=== PATIENT | male | born 1970 | race Caucasian/White ===

== ENCOUNTER 2024-06-20 10:36 | Day surgery (SDC) | payer OTHER, SELFPAY ==
--- NOTE | 2024-06-20 11:05 | US_ITS ---
WS: [id number] ULTRASOUND-GUIDED PARACENTESIS CLINICAL INFORMATION: hepatic cirrhosis COMPARISON: None. Procedure Informed consent: The risks, benefits, and alternatives of the procedure were discussed with the lester ent. Verbal and written consent was obtained. Timeout: A timeout was performed to confirm the correct patient, procedure, and site. Preparation: A suitable skin site was identified. The patient was prepped and draped in usual sterile fashion. Lidocaine 1% was used for local anesthesia. Catheter: 4 Pakistani One-step Yueh catheter. Side: LEFT lower quadrant. Fluid Volume: 6200 ml Color: Clear yellow DISPOSITION: Discarded safely. Complications: None. Patient disposition: Discharged from the department in stable condition. US/US paracentesis abd w [id number] IMPRESSION: Uncomplicated ultrasound-guided paracentesis. Removal of 6200 cc
[2024-06-20 11:12] VITALS: BP 143/97; PULSE 93; RESP 18; TEMP 36.6; O2SAT 97; BMI 31.9
[2024-06-20 12:17] LABS: Appearance, Peritoneal Fluid Cloudy (Clear); Color, Peritoneal Fluid Yellow (Pale Yellow); Cyto Order Verification Order Verified
[2024-06-20 12:18] LABS: Pathology Referral Yes
[2024-06-20 12:27] LABS: Polynuclear # Cells, Perit 0.003 10^3/uL; RBC Pertioneal Fluid 0 10^3/uL; WBC Peritoneal Fluid 73 /uL
== END 2024-06-20 12:24 | disposition home or self-care (01) ==
LOC: GILAB 10:37
PROVIDERS: Radiology Neuroradiology; Family Provider Family Medicine; PCP Nurse Practitioner; Visit Provider Nurse Practitioner
PROC: (CPT 49082; principal; 2024-06-20 12:00)
DX: K74.60 Unspecified cirrhosis of liver (principal)
CPT/HCPCS: 49083; 80503; 88112; 89050

== ENCOUNTER 2024-08-04 13:35 | Emergency (ER) | payer OTHER, SELFPAY ==
[2024-08-04 14:02] VITALS: BP 109/71; PULSE 87; RESP 18; TEMP 36.5; O2SAT 97
[2024-08-04 14:37] LABS: Basophils # 0.1 10^3/uL (0.0-0.1); Eosinophils # 0.1 10^3/uL (0.0-0.8); Eosinophils % 1.6 %; Hematocrit 34.4 % (37-53); Lymphocytes # 1.6 10^3/uL (0.8-4.8); Lymphocytes % 33.1 %; Mean Corpuscular HGB Conc 33.7 g/dL (30-55); Mean Corpuscular Hemoglobin 33.9 pg (27-33); Mean Corpuscular Volume 100.6 fl (82-101); Mean Platelet Volume 9.9 fL (7.4-10.4); Monocytes # 0.4 10^3/uL (0.2-0.9); Monocytes % 8.4 %; Neutrophils # 2.69 10^3/uL (1.8-7.7); Neutrophils % 55.5 %; Nucleated Red Blood Cells % 0 %; Platelet Count 82 10^3/cmm (157-399); Red Blood Count 3.42 10^6/uL (3.85-5.65); Red Cell Distribution Width 13.7 % (12.1-15.1); White Blood Count 4.86 10^3/uL (3.29-11.43)
[2024-08-04 15:01] LABS: Alanine Aminotransferase 24 U/L (0-41); Albumin Level 2.9 g/dL (3.5-5.2); Alkaline Phosphatase 108 U/L (40-130); Anion Gap 14.7 (5-19); Aspartate Amino Transferase 41 U/L (0-40); Blood Urea Nitrogen 18 mg/dL (6-20); Calcium 8.7 mg/dL (8.5-10.5); Carbon Dioxide 22 mmol/L (22-29); Chloride 103 mmol/L (98-107); Creatinine Clr Calc Pharmacy 54.8122; Globulin 4.1 g/dL (1.3-4.6); Glomerular Filtration Rate 42.5 mL/min (90-130); Glucose 159 mg/dL (65-115); Lipase 126 U/L (13-60); NT Pro B Type Natriuretic Pept 393 pg/mL (0-125); Osmolality Calculated 287 mOsm/kg (285-295); Potassium 3.7 mmol/L (3.5-5.1); Sodium 136 mmol/L (136-145); Total Bilirubin 4.7 mg/dL (0.15-1.2)
--- NOTE | 2024-08-04 15:28 | US_ITS ---
WS: [id number] ULTRASOUND-GUIDED PARACENTESIS CLINICAL INFORMATION: abd swelling, hx of cirrhosis Procedure Informed consent: The risks, benefits, and alternatives of the procedure were discussed with the patient. Verbal and written consent was obtained. Timeout: A timeout was performed to confirm the correct patient, procedure, and site. Preparation: A suitable skin site was identified. The patient was prepped and draped in usual sterile fashion. Lidocaine 1% was used for local anesthesia. Catheter: 4 Polish One-step Vertical Knowledgeeh catheter. Side: LEFT lower quadrant. Fluid Volume: 5600 ml Color: Clear yellow DISPOSITION: Discarded safely. Complications: None. US/US paracentesis abd w [id number] IMPRESSION: Uncomplicated ultrasound-guided paracentesis. Removal of 5600cc
--- NOTE | 2024-08-04 15:30 | PC.PHAR ---
Pt verified that he is taking only the medications on the list. The following list are current meds pt has taken recently. Midodrine 5mg bid 07/11/24 30ds Lactulose 10g/15ml 30ml daily prn 07/11/24 30ds Lisinopril 30mg dfaily 05/31/25 90ds Allopurinol 300mg daily 05/11/24 90ds Furosemide 20mg daiy 05/11/24 90ds These medications were not added to Hospital med list.
--- NOTE | 2024-08-04 15:33 | ED_ITS ---
HPI - Abdominal Pain 2 General: Chief Complaint: Abdominal Pain Stated Complaint: fluid built up on stomach Time Seen by Provider: 08/04/24 15:11 Source: patient Mode of arrival: ambulatory Limitations: no limitations History of Present Illness: Patient is a 53-year-old male who presents to the emergency department for abdominal pain and swelling for the past week. He has a history of alcoholic liver cirrhosis, states that back in June he had a paracentesis performed here to drain off fluid from his stomach. Reviewing this note it does appear that he had 6200 cc removed. He states that since he has been seen at [facility] in [place] for another paracentesis. He is here stating that he needs another one, states [place] [facility] [place] that [place] is his primary doctor. He is not reporting any fevers, nausea or vomiting, confusion, and is not demonstrating any signs of altered mental status. He is noting that he is starting to feel sick to his stomach and abdominal pain primarily to the epigastric region. Patient reportedly has been started on a higher dose of spironolactone and has follow-up appointment with primary care next Thursday. At this time his blood pressure is 109/71, rest of his vitals within normal limits. MD elicited complaint: abdominal pain Pertinent past history: other (Alcoholic liver cirrhosis with ascites) Onset (ago): day(s) Pain Consistency: intermittent Location: Epigastric Severity: moderate Quality: fullness Radiation: none Associated Symptoms: Reports bloating and nausea; Denies change in stool character, chills, coffee ground emesis, constipation, diarrhea, dysuria, fever(s), hematochezia, hematemesis and vomiting Related Data Home Medications ?Medication ?Instructions ?Recorded ?Confirmed aspirin 81 mg tablet,delayed 81 mg PO DAILY 06/16/24 0 08/04/24 release ondansetron 4 mg disintegrating 4 mg PO Q6H PRN Nausea And Vomiting 06/16/24 08/04/24 tablet pantoprazole 40 mg tablet,delayed 40 mg PO DAILY PRN A ayan Reflux 06/16/24 08/04/24 release (Protonix) albuterol sulfate 90 mcg/actuation 1 puff inhalation Q 4H PRN 08/04/24 08/04/24 aerosol inhaler Shortness Of Breath metolazone 5 mg tablet 5 mg PO DAILY 08/04/2408/04 spironolactone 100 mg tablet 100 mg PO DAILY 08/04/24 08/04/24 Allergies Allergy/AdvReac Type Severity Reaction Status Date / Time morphine Allergy ADR-Nausea Verified 08/04/24 14:09 Review of Systems 2 General: Reports: 10 or more systems reviewed and unremarkable except in HPI and below Const: Denies: fever(s), chills, change in appetite, change in weight or diaphoresis ENMT: Denies: throat pain or hoarseness Card: Denies: chest pain, palpitations or lightheadedness Resp: Denies: dyspnea, productive cough or wheezing GI: Reports: abdominal pain, nausea and bloating; Denies: vomiting, hematemesis, coffee ground emesis, diarrhea, constipation, change in stool character or hematochezia : Denies: flank pain, difficulty urinating, dysuria, urinary frequency or urinary urgency Musc: Denies: neck pain or back pain Skin/Breast: Denies: rash or new lesions Neuro: Denies: headache(s) or dizziness Physical Exam 2 Const: COMMON NORMALS: no acute distress, patient oriented x3, no limitations, alert and well nourished GENERAL APPEARANCE: cooperative and comfortable O RIENTATION/CONSCIOUSNESS: Yes awake OTHER: Mild jaundice of the skin HENMT: COMMON NORMALS: normocephalic, atraumatic, hearing grossly normal bilaterally, external ears normal, Normal external nose present, Normal nasal mucous membranes and turbinates present and moist oral mucous membranes HEAD & SCALP: normocephalic and atraumatic NOSE: Normal external nose present and Normal nasal mucous membranes and turbinates present EXTERNAL EAR: Yes external ears normal Eye: COMMON NORMALS: Equal, round and reactive pupils present, EOMs intact bilaterally, conjunctivae normal and normal visual cherry by confrontation C ONJUNCTIVA: Yes conjunctivae normal PUPIL: Yes Equal, round and reactive pupils present Neck/C-Spine: COMMON NORMALS: full ROM, supple, no meningeal signs and no JVD Resp: COMMON NORMALS: normal respiratory effort, No retractions, No use of accessory muscles and clear to auscultation bilaterally AUSCULTATION: clear to auscultation bilaterally, no crackles, no rales, no rhonchi and no wheezes Cardio: COMMON NORMALS: no JVD, regular rate, regular rhythm, S1 normal heart sound present, S2 normal heart sound present, No gallops present (Cardio), No clicks present (Cardio), No murmurs present (Cardio), No rub (Cardio) and Peripheral pulses 2+ throughout RATE: regular rate RHYTHM: regular rhythm HEART SOUNDS: S1 normal heart sound present and S2 normal heart sound present PERIPHERAL PULSES: Peripheral pulses 2+ throughout GI: COMMON NORMALS: Soft to palpation INSPECTION: Yes abdominal distension, Yes visible herniation and Yes Fluid wave present AUSCULTATION: Yes normoactive bowel sounds PALPATION: Yes Soft to palpation, Yes Tenderness to palpation present (GI) (Epigastric, mild), No Guarding due to palpation present (GI) and No Rigid due to palpation PERCUSSION: Fluid wave present RECTAL EXAM: Yes deferred Extremity: COMMON NORMALS: normal to inspection and full ROM Neuro: COMMON NORMALS: patient oriented x3, moves all extremities, no focal motor deficits and no sensory deficits noted SENSORIUM/ORIENTATION: Yes alert MENINGEAL SIGNS: Yes no meningeal signs Psych: COMMON NORMALS: mental status grossly normal, cooperative and speech normal SPEECH: Yes normal speech Skin: COMMON NORMALS: no rashes or lesions noted GENERAL SKIN EXAM: no rashes or lesions noted Course 2 Vital Signs: Vital signs: Vital Signs Temperature 97.7 F 08/04/24 14:02 Pulse Rate 80 08/04/24 16:40 Respiratory Rate 16 08/04/24 16:40 Blood Pressure 127/75 08/04/24 16:40 Pulse Oximetry 96 08/04/24 16:40 Oxygen Delivery Me thod Room Air 08/04/24 16:40 MDM - Abdominal Pain Medical Decision Making Patient presented with persistent swelling of the abdomen, twice this year has already had paracentesis performed. Reviewing note from 06/20, it appears Dr. Bermudez drained off 6200 cc of fluid, and subsequently states he had half a gallon drained off of him at [facility]. On exam there was fluid wave, abdomen was distended but was also soft. No major abnormalities on blood work considering patient's history of alcoholic liver cirrhosis. States he has not drinking recently. I spoke with Dr. Bermudez, interventional radiologist, who kindly agrees to perform paracentesis pending his ultrasound of the abdomen. Approximately 5600 cc drained today, and with his upcoming appointment with primary care informed him that he needs to discuss setting up routine visits with GI to have regular paracentesis performed. He notes quite a bit of relief in his pain after the paracentesis, will be allowed discharge home with strict return precautions of which she verbalized understanding. Lab Data 08/04/24 14:19 08/04/24 14:19 Labs/Radiology: Laboratory Results WBC 4.86 10^3/uL (3.29-11.43) 08/04/24 14:19 RBC 3.42 10^6/uL (3.85-5.65) L 08/04/24 14:19 Hgb 11.60 g/dL (11.27-16.99) 08/04/24 14:19 Hct 34.4 % (37-53) L 08/04/24 14:19 MCV 100.6 fl (82-101) 08/04/24 14:19 MCH 33.9 pg (27-33) H 08/04/24 14:19 MCHC 33.7 g/dL (30-55) 08/04/24 14:19 RDW 13.7 % (12.1-15.1) 08/04/24 14:19 Plt Count 82 10^3/cmm (157-399) L 08/04/24 14:19 MPV 9.9 fL (7.4-10.4) 08/04/24 14:19 Neut % (Auto) 55.5 % 08/04/24 14:19 Lymph % (Auto) 33.1 % 08/04/24 14:19 [place] % (Auto) 8.4 % 08/04/24 14:19 Eos % (Auto) 1.6 % 08/04/24 14:19 Baso % (Auto) 1.0 % 08/04/24 14:19 Neut # (Auto) 2.69 10^3/uL (1.8-7.7) 08/04/24 14:19 Lymph # (Auto) 1.6 10^3/uL (0.8-4.8) 08/04/24 14:19 [place] # (Auto) 0.4 10^3/uL (0.2-0.9) 08/04/24 14:19 Eos # (Auto) 0.1 10^3/uL (0.0-0.8) 08/04/24 14:19 Baso # (Auto) 0.1 10^3/uL (0.0-0.1) 08/04/24 14:19 Nucleated RBC % (auto) 0 % 08/04/24 14:19 Nucleated RBCs # 0.0 /100WBC 08/04/24 14:19 Sodium 136 mmol/L (136-145) 08/04/24 14:19 Potassium 3.7 mmol/L (3.5-5.1) 08/04/24 14:19 Chloride 103 mmol/L (98-107) 08/04/24 14:19 Carbon Dioxide 22 mmol/L (22-29) 08/04/24 14:19 Anion Gap 14.7 (5-19) 08/04/24 14:19 BUN 18 mg/dL (6-20) 08/04/24 14:19 Creatinine 1.7 mg/dL (0.7-1.2) H 08/04/24 14:19 GFR Calculation 42.5 mL/min (90-130) L 08/04/24 14:19 Glucose 159 mg/dL (65-115) H 08/04/24 14:19 Calculated Osmolality 287 mOsm/kg (285-295) 08/04/24 14:19 Calcium 8.7 mg/dL (8.5-10.5) 08/04/24 14:19 Total Bilirubin 4.7 mg/dL (0.15-1.2) H 08/04/24 14:19 AST 41 U/L (0-40) H 08/04/24 14:19 ALT 24 U/L (0-41) 08/04/24 14:19 Alkaline Phosphatase 108 U/L (40-130) 08/04/24 14:19 NT-Pro-B Natriuret Pep 393 pg/mL (0-125) H 08/04/24 14:19 Total Protein 7.0 g/dL (6.6-8.7) 08/04/24 14:19 Albumin 2.9 g/dL (3.5-5.2) L 08/04/24 14:19 Globulin 4.1 g/dL (1.3-4.6) 08/04/24 14:19 Lipase 126 U/L (13-60) H 08/04/24 14:19 No radiology studies performed this visit Discharge Plan Discharge Patient Disposition: Home Clinical Impression: Alcoholic cirrhosis of liver with ascites Condition: Stable Prescriptions: No Action aspirin [Aspir-81] 81 mg Tablet,Delayed Release (Dr/Ec) 81 mg PO DAILY pantoprazole [Protonix] 40 mg Tablet,Delayed Release (Dr/Ec) 40 mg PO DAILY PRN (Reason: Acid Reflux) ondansetron 4 mg Tablet,Disintegrating 4 mg PO Q6H PRN (Reason: Nausea And Vomiting) spironolactone 100 mg tablet 100 mg PO DAILY metolazone 5 mg tablet 5 mg PO DAILY albuterol sulfate 90 mcg/actuation HFA aerosol inhaler 1 puff INHALATION Q4H PRN (Reason: Shortness Of Breath) Discharge Orders: Discharge ED (Routine); Ordered 08/04/24 Ordered By: Konstantin Arriaza Referrals: Larissa Fuller FNP [Primary Care Provider] - Patient Instructions: Cirrhosis of the Liver (ED) Activity Restrictions/Additional Instructions: Please follow-up with your primary care early next week as planned to discuss setting up appointments with GI Lab for routine paracentesis. If you start developing any fevers, confusion, worsening illness, worsening abdominal pain or swelling, or other concerns please return to the emergency department as we discussed. Please see attached patient instructions for further education. Avoid alcohol use. Print Language: Nepali Coding Level of Care Code ED Food Safety Coordinator for Uday Benjamin
[2024-08-04 16:18] VITALS: PULSE 88; RESP 16; O2SAT 97
[2024-08-04 16:22] VITALS: BP 101/72
[2024-08-04 16:40] VITALS: BP 127/75; PULSE 80; RESP 16; O2SAT 96
--- NOTE | 2024-08-04 17:13 | PC.NURSE ---
PATIENT PARACENTESIS COMPLETED. PATINET HAD 5600 ML OUT. PATIENT TOLERATED PROCEDURE WELL.
[2024-08-04 17:32] VITALS: BP 91/58; PULSE 83; O2SAT 96
== END 2024-08-04 17:33 | disposition home or self-care (01) ==
PROVIDERS: Emergency Medicine; Emergency Provider Physician Assistant; PCP Nurse Practitioner
DX: K70.31 Alcoholic cirrhosis of liver with ascites (principal); Z79.82 Long term (current) use of aspirin
CPT/HCPCS: 36415; 49083; 80053; 83690; 83880; 85025; 99285; 99291

== ENCOUNTER 2024-08-15 18:33 | Emergency (ER) | payer OTHER, SELFPAY ==
[2024-08-15] VITALS (16 sets, daily range): BP systolic 64–82; BP diastolic 41–48; PULSE 70–96; RESP 12–27; TEMP 36.9; O2SAT 91–100; BMI 28.1
--- NOTE | 2024-08-15 18:36 | XRR_ITS ---
PROCEDURE INFORMATION: Exam: XR Chest Exam date and time: 08/15/2024 7:09 PM Age: 53 years old Clinical indication: Shortness of breath; Additional info: SOB TECHNIQUE: Imaging protocol: Radiologic exam of the chest. Views: 1 view. COMPARISON: No relevant prior studies available. FINDINGS: Lungs: There is no consolidation. Pleural spaces: There is no pleural effusion or pneumothorax. Heart/Mediastinum: Cardiomediastinal contours are unremarkable. Bones/joints: Bones are unremarkable. XR/XR chest 1V portable [id number] IMPRESSION: No acute findings.
--- NOTE | 2024-08-15 18:37 | ECG_ITS ---
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 Measurements Intervals [place] Rate: 97 P: 44 MN: 139 QRS: 53 QRSD: 97 T: 4 QT: 376 QTc: 479 Interpretive Statements SINUS RHYTHM No previous ECG available for comparison Electronically Signed On 08-20-2024 18:15:10 CATHEAD WORKER by Sanjeev Bolanos M.D. [email or web address] health [id number]
--- NOTE | 2024-08-15 19:56 | W.ED.SOB ---
HPI - SOB/Dyspnea General: Chief Complaint: Shortness of Breath/Dyspnea Stated Complaint: SOB\ABD Pain Time Seen by Provider: 08/15/24 19:37 History of Present Illness: HPI Narrative: Patient presents to the ER with complaints of increasing shortness of breath and weakness for the past few days. Patient does have liver failure and has paracentesis done from time to time. Patient had it drained yesterday and he says they took off 5 to 6 L. Patient denies any fevers but does say he is cold and has chills all the time. 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 Patient is noted to be hypotensive in triage with a blood pressure of approximately 65/42. Patient is only blood pressure potential medicine is metolazone 5 and spironolactone 100 mg daily. Related Data Home Medications ?Medication ?Instructions ?Recorded ?Confirmed aspirin 81 mg tablet,delayed 81 mg PO DAILY 06/16/24 08/04/24 release ondansetron 4 mg disintegrating 4 mg PO Q6H PRN Nausea And Vomiting 06/16/24 08/04/24 tablet pantoprazole 40 mg tablet,delayed 40 mg PO DAILY PRN Acid Reflux 06/16/24 08/04/24 release (Protonix) albuterol sulfate 90 mcg/actuation 1 puff inhalation Q4H PRN 08/04/24 08/04/24 aerosol inhaler Shortness Of Breath metolazone 5 mg tablet 5 mg PO DAILY 08/04/24 08/04/24 spironolactone 100 mg tablet 100 mg PO DAILY 08/04/24 08/04/24 Allergies Allergy/AdvReac Type Severity Reaction Status Date / Time morphine Allergy ADR-Nausea Verified 08/15/24 19:02 Review of Systems General: Reports: 10 or more systems reviewed and unremarkable except in HPI and below Physical Exam Const: COMMON NORMALS: no acute distress, average body habitus, patient oriented x3, no limitations, healthy appearing, alert and well nourished HENMT: COMMON NORMALS: normocephalic, atraumatic, hearing grossly normal bilaterally, external ears normal, Normal external nose present, moist oral mucous membranes and oropharynx normal HEAD & SCALP: normocephalic and atraumatic NOSE: Normal external nose present EXTERNAL EAR: Yes external ears normal Neck/C-Spine: COMMON NORMALS: no JVD Chest: COMMONS NORMALS: normal inspection of the chest and normal palpation of entire chest wall Resp: COMMON NORMALS: normal respiratory effort, No retractions, No use of accessory muscles and clear to auscultation bilaterally AUSCULTATION: clear to auscultation bilaterally Cardio: COMMON NORMALS: no JVD, regular rate, regular rhythm, S1 normal heart sound present, S2 normal heart sound present, No gallops present (Cardio), No clicks present (Cardio), No murmurs present (Cardio) and No rub (Cardio) RATE: regular rate RHYTHM: regular rhythm HEART SOUNDS: S1 normal heart sound present and S2 normal heart sound present GI: COMMON NORMALS: Normal to inspection, nondistended, normoactive bowel sounds present, Soft to palpation and No hepatosplenomegaly present; negative for non-tender (Diffusely mildly tender) PALPATION: Yes Soft to palpation and Yes No hepatosplenomegaly present Neuro: COMMON NORMALS: patient oriented x3 SENSORIUM/ORIENTATION: Yes alert Course Vital Signs: Vital signs: Vital Signs Temperature 98.5 F 08/15/24 18:50 Pulse Rate 83 08/16/24 01:00 Respiratory Rate 14 08/16/24 01:00 Blood Pressure 74/42 08/16/24 01:00 Pulse Oximetry 92 08/16/24 01:00 Oxygen Delivery Me thod Nasal Cannula 08/15/24 21:00 Oxygen Flow Rate 2 08/15/24 21:00 MDM - SOB/Dyspnea Medical Decision Making Lab work was obtained, white count 12.38, BUN/creatinine 68 and 5.9, lactic acid 3.8, bilirubin 2.9, chest x-ray showed no acute findings, patient's blood pressure stayed soft, patient was given a septic bolus and 3.375 g of Zosyn. Blood pressure still stays soft. Patient was started on Levophed, chest abdomen pelvis showed cirrhosis with moderate ascites. Dr. Jules at [facility] accepted the patient for acute on chronic liver failure and septic shock. Medical Records I reviewed the patient's medical records. Lab Data I reviewed the patient's lab results. 08/15/24 19:50 08/15/24 19:50 Labs/Radiology: Radiology Impressions Chest X-Ray 08/15/24 18:36 IMPRESSION: No acute findings. Chest/Abdomen/Pelvis CT 08/15/24 22:10 IMPRESSION: 1. Mild diffuse fluid third-spacing with very small left and trace right pleural effusions and areas of ykzy-cozbhaw-pjpw-right mid to lower lung atelectasis, scarring, or airspace disease. 2. Other findings above. Abdomen/pelvis CT pending, see that report. IMPRESSION: 1. Cirrhosis with moderate ascites. 2. No small bowel obstruction, abscess or free air. Mild to moderate diffuse areas of large and small bowel wall thickening are probably due to mural edema versus less likely small areas of enteritis or colitis. 3. A few chronic/incidental findings above including 4 cm AAA. Laboratory Results WBC 12.38 10^3/uL (3.29-11.43) H 08/15/24 19:50 RBC 3.53 10^6/uL (3.85-5.65) L 08/15/24 19:50 Hgb 11.70 g/dL (11.27-16.99) 08/15/24 19:50 Hct 34.0 % (37-53) L 08/15/24 19:50 MCV 96.3 fl (82-101) 08/15/24 19:50 MCH 33.1 pg (27-33) H 08/15/24 19:50 MCHC 34.4 g/dL (30-55) 08/15/24 19:50 RDW 13.8 % (12.1-15.1) 08/15/24 19:50 Plt Count 90 10^3/cmm (157-399) L 08/15/24 19:50 MPV 11.5 fL (7.4-10.4) H 08/15/24 19:50 Neut % (Auto) 76.8 % 08/15/24 19:50 Lymph % (Auto) 11.1 % 08/15/24 19:50 [place] % (Auto) 10.8 % 08/15/24 19:50 Eos % (Auto) 0.2 % 08/15/24 19:50 Baso % (Auto) 0.3 % 08/15/24 19:50 Neut # (Auto) 9.50 10^3/uL (1.8-7.7) H 08/15/24 19:50 Lymph # (Auto) 1.4 10^3/uL (0.8-4.8) 08/15/24 19:50 [place] # (Auto) 1.3 10^3/uL (0.2-0.9) H 08/15/24 19:50 Eos # (Auto) 0.0 10^3/uL (0.0-0.8) 08/15/24 19:50 Baso # (Auto) 0.0 10^3/uL (0.0-0.1) 08/15/24 19:50 Nucleated RBC % (auto) 0 % 08/15/24 19:50 Nucleated RBCs # 0.0 /100WBC 08/15/24 19:50 Sodium 130 mmol/L (136-145) L 08/15/24 19:50 Potassium 4.6 mmol/L (3.5-5.1) 08/15/24 19:50 Chloride 93 mmol/L (98-107) L 08/15/24 19:50 Carbon Dioxide 25 mmol/L (22-29) 08/15/24 19:50 Anion Gap 16.6 (5-19) 08/15/24 19:50 BUN 68 mg/dL (6-20) H 08/15/24 19:50 Creatinine 5.9 mg/dL (0.7-1.2) H* 08/15/24 19:50 GFR Calculation 10.1 mL/min (90-130) L 08/15/24 19:50 Glucose 115 mg/dL (65-115) 08/15/24 19:50 Calculated Osmolality 291 mOsm/kg (285-295) 08/15/24 19:50 Lactic Acid 3.8 mmol/L (0.5-2.2) H 08/15/24 19:50 Lactic Acid (Sepsis) 2.1 mmol/L (0.5-2.2) 08/15/24 23:23 Calcium 8.4 mg/dL (8.5-10.5) L 08/15/24 19:50 Phosphorus 4.1 mg/dL (2.5-4.5) 08/15/24 19:50 Magnesium 2.0 mg/dL (1.7-2.3) 08/15/24 19:50 Total Bilirubin 2.9 mg/dL (0.15-1.2) H 08/15/24 19:50 AST 24 U/L (0-40) 08/15/24 19:50 ALT 16 U/L (0-41) 08/15/24 19:50 Alkaline Phosphatase 92 U/L (40-130) 08/15/24 19:50 C-Reactive Protein 171.2 mg/L (0.0-4.9) H 08/15/24 19:50 NT-Pro-B Natriuret Pep 1489 pg/mL (0-125) H 08/15/24 19:50 Total Protein 6.6 g/dL (6.6-8.7) 08/15/24 19:50 Albumin 2.4 g/dL (3.5-5.2) L 08/15/24 19:50 Globulin 4.2 g/dL (1.3-4.6) 08/15/24 19:50 Lipase 99 U/L (13-60) H 08/15/24 19:50 Procalcitonin 13.17 ng/mL (0-0.5) H 08/15/24 19:50 Influenza A (PCR) Negative (Negative) 08/15/24 21:31 Influenza Type B (PCR) Negative (Negative) 08/15/24 21:31 RSV (PCR) Negative (Negative) 08/15/24 21:31 SARS-CoV-2 (PCR) Negative (Negative) 08/15/24 21:31 All radiology interpretation(s) finalized by discharge Discharge Plan Discharge Patient Disposition: Xfer Short-Term Hosp Clinical Impression: Liver failure, Acute renal failure, Septic shock Condition: Stable Prescriptions: No Action aspirin [Aspir-81] 81 mg Tablet,Delayed Release (Dr/Ec) 81 mg PO DAILY pantoprazole [Protonix] 40 mg Tablet,Delayed Release (Dr/Ec) 40 mg PO DAILY PRN (Reason: Acid Reflux) ondansetron 4 mg Tablet,Disintegrating 4 mg PO Q6H PRN (Reason: Nausea And Vomiting) spironolactone 100 mg tablet 100 mg PO DAILY metolazone 5 mg tablet 5 mg PO DAILY albuterol sulfate 90 mcg/actuation HFA aerosol inhaler 1 puff INHALATION Q4H PRN (Reason: Shortness Of Breath) Referrals: Larissa Fuller, VICE PRESIDENT TALENT MANAGEMENT [Primary Care Provider] - Print Language: Mongolian Coding Level of Care Code ED Medical Services Assistant for Chg Sourav
[2024-08-15 19:58] LABS: Basophils % 0.3 %; Eosinophils % 0.2 %; Lymphocytes # 1.4 10^3/uL (0.8-4.8); Lymphocytes % 11.1 %; Mean Corpuscular HGB Conc 34.4 g/dL (30-55); Mean Corpuscular Hemoglobin 33.1 pg (27-33); Mean Corpuscular Volume 96.3 fl (82-101); Mean Platelet Volume 11.5 fL (7.4-10.4); Monocytes # 1.3 10^3/uL (0.2-0.9); Monocytes % 10.8 %; Neutrophils % 76.8 %; Nucleated Red Blood Cells % 0 %; Platelet Count 90 10^3/cmm (157-399); Red Blood Count 3.53 10^6/uL (3.85-5.65); Red Cell Distribution Width 13.8 % (12.1-15.1); White Blood Count 12.38 10^3/uL (3.29-11.43)
[2024-08-15] MEDS: ketorolac 30 mg/mL INJ IVP (20:00)
[2024-08-15] MEDS: ondansetron 2 mg/ML SDV 2 mL 4 MG IVP (20:00)
[2024-08-15 20:13] LABS: Lactic Sepsis W/Reflex 3.8 mmol/L (0.5-2.2)
[2024-08-15] MEDS: sodium chloride 0.9% 500 ML 999 ML IV (20:20)
[2024-08-15 20:24] LABS: NT Pro B Type Natriuretic Pept 1489 pg/mL (0-125); Procalcitonin 13.17 ng/mL (0-0.5)
[2024-08-15 20:35] LABS: Alanine Aminotransferase 16 U/L (0-41); Albumin Level 2.4 g/dL (3.5-5.2); Alkaline Phosphatase 92 U/L (40-130); Anion Gap 16.6 (5-19); Aspartate Amino Transferase 24 U/L (0-40); Blood Urea Nitrogen 68 mg/dL (6-20); Calcium 8.4 mg/dL (8.5-10.5); Carbon Dioxide 25 mmol/L (22-29); Chloride 93 mmol/L (98-107); Creatinine Clr Calc Pharmacy 15.4551; Globulin 4.2 g/dL (1.3-4.6); Glomerular Filtration Rate 10.1 mL/min (90-130); Glucose 115 mg/dL (65-115); Lipase 99 U/L (13-60); Osmolality Calculated 291 mOsm/kg (285-295); Potassium 4.6 mmol/L (3.5-5.1); Sodium 130 mmol/L (136-145); Total Bilirubin 2.9 mg/dL (0.15-1.2); Total Protein 6.6 g/dL (6.6-8.7)
[2024-08-15] MEDS: ipratropium-albuterol 3 mL Neb INHALATION (20:56)
[2024-08-15] MEDS: HYDROMORPHONE HCL 0.5 MG/0.5 ML INJ IVP (21:24)
[2024-08-15] MEDS: piperacillin-tazobactam 3.375 GM in sodium chloride 0.9% (plus) 50 ML IV (21:27)
[2024-08-15 21:36] LABS: C Reactive Protein 171.2 mg/L (0.0-4.9); Phosphorus 4.1 mg/dL (2.5-4.5)
[2024-08-15 21:44] LABS: Reflex Lactate Order REFLEX LACTIC ORDERD
--- NOTE | 2024-08-15 22:10 | CTR_ITS ---
PROCEDURE INFORMATION: Exam: CT Chest Without Contrast; Diagnostic Exam date and time: 08/15/2024 10:25 PM Age: 53 years old Clinical indication: Abdominal tenderness; Other: Sepsis; Prior surgery; Surgery date: 6+ months; Surgery type: Gb; Additional info: Sepsis, kidney liver failure, hypotension, ascites TECHNIQUE: Imaging protocol: Diagnostic computed tomography of the chest without contrast. Radiation optimization: All CT scans at this facility use at least one of these dose optimization techniques: automated exposure control; mA and/or kV adjustment per patient size (includes targeted exams where dose is matched to clinical indication); or iterative reconstruction. COMPARISON: CR (CHEST, ) 08/15/2024 7:09 PM RADIATION DOSE METRICS: Total DLP (mGy-cm): 828.11 FINDINGS: Lungs: Yiyyesya-wd-tssmhi underlying emphysema with COPD. There is upper lung paraseptal and centrilobular emphysematous change. Moderate areas of bmfn-lkrwyed-lwqg-right mid to lower lung atelectasis, scarring or developing airspace disease. Pleural spaces: Very small left pleural effusion. Trace right pleural fluid. No pneumothorax. Heart: The heart is normal size. No pericardial effusion. Coronary arteries: Advanced coronary atherosclerotic calcifications are present. Lymph nodes: Mild likely reactive mediastinal lymphadenopathy. Vasculature: No acute finding noted. No aortic aneurysm. Bones/joints: No acute fracture. Soft tissues: Unremarkable. COMMENTS: The presence of pulmonary emphysema on CT is an independent risk factor for lung cancer. In the absence of a history or active diagnosis of lung cancer, it is recommended that this patient with emphysema be evaluated for enrollment in a low dose CT lung cancer screening program. PROCEDURE INFORMATION: Exam: CT Abdomen And Pelvis Without Contrast Exam date and time: 08/15/2024 10:25 PM Age: 53 years old Clinical indication: Abdominal tenderness; Other: Sepsis; Prior surgery; Surgery date: 6+ months; Surgery type: Gb; Additional info: Sepsis, kidney liver failure, hypotension, ascites TECHNIQUE: Imaging protocol: Computed tomography of the abdomen and pelvis without contrast. Radiation optimization: All CT scans at this facility use at least one of these dose optimization techniques: automated exposure control; mA and/or kV adjustment per patient size (includes targeted exams where dose is matched to clinical indication); or iterative reconstruction. COMPARISON: US paracentesis abd w [id number] 08/04/2024 4:05 PM RADIATION DOSE METRICS: Total DLP (mGy-cm): 828.11 FINDINGS: Lungs: See same-day chest CT for lung base findings. Liver: At least mild cirrhosis. Gallbladder and biliary ducts: Absent gallbladder. Pancreas: Unremarkable with no suspicious mass. No ductal dilation. Spleen: Mild splenomegaly. Adrenal glands: Normal. No mass. Kidneys and ureters: No solid renal mass or hydronephrosis. Stomach and bowel: Mild diffuse areas of large and small bowel wall thickening are probably due to mural edema versus less likely small areas of enteritis or colitis. No small bowel obstruction, abscess or free air. Mild sigmoid diverticulosis. Appendix: No evidence of appendicitis. Intraperitoneal space: Moderate diffuse ascites. No abscess or free air. Mild diffuse mesenteric edema. Vasculature: The abdominal aorta measures up to about 41 x 37 mm. Follow up 1 year. Advanced diffuse vascular calcification noted. Lymph nodes: No enlarged lymph nodes. Urinary bladder: Unremarkable as visualized. Reproductive: Unremarkable as visualized. Bones/joints: No acute fracture. 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 Soft tissues: No acute or suspicious finding noted. CT/[place] [id number] IMPRESSION: 1. Mild diffuse fluid third-spacing with very small left and trace right pleural effusions and areas of wfaf-eerfgvt-qvcm-right mid to lower lung atelectasis, scarring, or airspace disease. 2. Other findings above. Abdomen/pelvis CT pending, see that report. IMPRESSION: 1. Cirrhosis with moderate ascites. 2. No small bowel obstruction, abscess or free air. Mild to moderate diffuse areas of large and small bowel wall thickening are probably due to mural edema versus less likely small areas of enteritis or colitis. 3. A few chronic/incidental findings above including 4 cm AAA.
[2024-08-15 22:20] LABS: Influenza A NEGATIVE (Negative); Influenza B NEGATIVE (Negative); Respiratory Syncytial Virus Ce NEGATIVE (Negative); SARS-CoV-2 PCR NEGATIVE (Negative)
[2024-08-15 23:46] LABS: Lactic Acid level (Lactate) 2.1 mmol/L (0.5-2.2)
[2024-08-16] VITALS (10 sets, daily range): BP systolic 69–119; BP diastolic 42–66; PULSE 63–85; RESP 7–16; O2SAT 90–97
[2024-08-16] MEDS: norepinephrine 4 MG/250 ML BAG 7.5 MG IV (01:34)
[2024-08-16] MEDS: HYDROmorphone 1 mg/mL INJ 1 mL 0.5 MG IVP (04:48)
--- NOTE | 2024-08-16 05:09 | PC.NURSE ---
Pt's Levophed was continued upon transfer.
== END 2024-08-16 04:55 | disposition short-term general hospital (02) ==
PROVIDERS: Emergency Medicine; Emergency Provider Emergency Medicine; PCP Nurse Practitioner
DX: K72.90 Hepatic failure, unspecified without coma (principal); N17.9 Acute kidney failure, unspecified; A41.9 Sepsis, unspecified organism; R65.21 Severe sepsis with septic shock; Z79.82 Long term (current) use of aspirin; Z11.52 Encounter for screening for COVID-19
CPT/HCPCS: 36415; 71045; 71250; 74176; 80053; 83605; 83690; 83735; 83880; 84100; 84145; 85025; 86140; 87040; 87637; 93005; 94640; 96365; 96366; 96367; 96375; 96376; 99285; J1171; J1885; J2405; J2543; J7030; J7040

== ENCOUNTER 2024-08-27 22:11 | Emergency (ER) | payer OTHER, SELFPAY ==
[2024-08-27 22:35] VITALS: BP 120/78; PULSE 89; RESP 16; TEMP 36.6; O2SAT 100
--- NOTE | 2024-08-27 23:09 | XRR_ITS ---
PROCEDURE INFORMATION: Exam: XR Chest Exam date and time: 08/28/2024 12:07 AM Age: 53 years old Clinical indication: Shortness of breath; Prior surgery; Surgery date: 6+ months; Surgery type: Gb; C/O SOB TECHNIQUE: Imaging protocol: Radiologic exam of the chest. Views: 1 view. COMPARISON: [place] [id number] 08/15/2024 10:25 PM FINDINGS: Lungs: Unremarkable. No consolidation. Pleural spaces: Unremarkable. No pleural effusion. No pneumothorax. Heart/Mediastinum: Unremarkable. No cardiomegaly. Bones/joints: Unremarkable. XR/XR chest 1V portable [id number] IMPRESSION: No acute findings.
[2024-08-27 23:31] LABS: Basophils # 0.1 10^3/uL (0.0-0.1); Basophils % 1.6 %; Eosinophils # 0.2 10^3/uL (0.0-0.8); Eosinophils % 4.5 %; Hematocrit 33.6 % (37-53); Lymphocytes # 1.2 10^3/uL (0.8-4.8); Lymphocytes % 27.2 %; Mean Corpuscular HGB Conc 32.7 g/dL (30-55); Mean Corpuscular Hemoglobin 33.3 pg (27-33); Mean Corpuscular Volume 101.8 fl (82-101); Mean Platelet Volume 9.9 fL (7.4-10.4); Monocytes # 0.3 10^3/uL (0.2-0.9); Monocytes % 7.6 %; Neutrophils # 2.63 10^3/uL (1.8-7.7); Neutrophils % 58.7 %; Nucleated Red Blood Cells % 0 %; Platelet Count 98 10^3/cmm (157-399); Red Cell Distribution Width 15.7 % (12.1-15.1); White Blood Count 4.48 10^3/uL (3.29-11.43)
[2024-08-27 23:50] LABS: Anion Gap 15.7 (5-19); Blood Urea Nitrogen 39 mg/dL (6-20); Calcium 10.1 mg/dL (8.5-10.5); Carbon Dioxide 24 mmol/L (22-29); Chloride 102 mmol/L (98-107); Creatinine Clr Calc Pharmacy 60.0509; Glomerular Filtration Rate 49.1 mL/min (90-130); Glucose 101 mg/dL (65-115); Osmolality Calculated 296 mOsm/kg (285-295); Potassium 3.7 mmol/L (3.5-5.1); Sodium 138 mmol/L (136-145)
[2024-08-28 00:38] VITALS: BP 102/76; PULSE 80; RESP 17; O2SAT 100
--- NOTE | 2024-08-28 00:53 | ED_ITS ---
HPI - Weakness 2 General: Chief complaint: Weakness Stated complaint: SOB n/v/d Time Seen by Provider: 08/28/24 00:16 History of Present Illness: Patient presents with complaints of shortness of breath and vomiting, reporting two episodes of emesis today. Patient also notes a 'bowel taste' in mouth. Recently discharged from [facility] for hypotension. Patient has a history of cirrhosis secondary to alcohol use, with ongoing alcohol consumption. Reports unusual pattern of vomiting when blood pressure increases rather than decreases. Has required paracentesis for ascites, with last drainage performed on Thursday. Patient is scheduled for follow-up with Dr. Eduardo on Thursday for post- hospital visit. Currently on blood pressure medications but reports fluctuating readings, with previous readings as low as 60s. Physical Exam 2 Const: COMMON NORMALS: no acute distress, patient oriented x3 and alert HENMT: COMMON NORMALS: normocephalic HEAD & SCALP: normocephalic Eye: COMMON NORMALS: Equal, round and reactive pupils present, EOMs intact bilaterally and conjunctivae normal CONJUNCTIVA: Yes conjunctivae normal P UPIL: Yes Equal, round and reactive pupils present Neck/C-Spine: COMMON NORMALS: full ROM, no lymphadenopathy, supple, no meningeal signs, no JVD and Thyroid normal THYROID: Thyroid normal Chest: COMMONS NORMALS: normal inspection of the chest and normal palpation of entire chest wall Resp: COMMON NORMALS: normal respiratory effort, No retractions, No use of accessory muscles, clear to auscultation bilaterally and percussion normal A USCULTATION: clear to auscultation bilaterally PERCUSSION: percussion normal Cardio: COMMON NORMALS: no JVD GI: OTHER: Non tender. Fluid wave, soft, distended : COMMON NORMALS: Yes no CVA tenderness BLADDER/KIDNEY EXAM: Yes no CVA tenderness Back/Pelvis: COMMON NORMALS: no CVA tenderness Extremity: COMMON NORMALS: normal to inspection, full ROM, capillary refill normal, no joint enlargement, no clubbing, cyanosis or edema, no calf tenderness and no pedal edema Neuro: COMMON NORMALS: patient oriented x3 SENSORIUM/ORIENTATION: Yes alert MENINGEAL SIGNS: Yes no meningeal signs Skin: COMMON NORMALS: no rashes or lesions noted, turgor normal and no jaundice GENERAL SKIN EXAM: no rashes or lesions noted and turgor normal Course 2 Vital Signs: Vital signs: Vital Signs Temperature 98 F 08/27/24 22:35 Pulse Rate 81 08/28/24 01:00 Respiratory Rate 16 08/28/24 01:00 Blood Pressure 102/76 08/28/24 01:00 Pulse Oximetry 100 08/28/24 01:00 Oxygen Delivery Me thod Room Air 08/28/24 01:00 MDM - Weakness Medical Decision Making 1. Hypotension - Currently borderline BP at 102 - Likely contributing to general malaise - Recommend medication adjustment - consider dose reduction or holding certain antihypertensive medications - Patient to monitor home blood pressure readings and bring log to follow-up appointment 2. Cirrhosis with Ascites - Chronic condition with recent paracentesis - Current ascites present but not requiring immediate intervention - Continued alcohol use noted - family court counsellor on cessation 3. Vomiting - Etiology unclear, possibly related to liver dysfunction - May be exacerbated by blood pressure fluctuations Plan: - No acute indication for hospital admission - Continue scheduled follow-up with Dr. Eduardo on Thursday - Home blood pressure monitoring recommended - Medication adjustments provided in written instructions Lab Data 08/27/24 23:25 08/27/24 23:25 Laboratory Results WBC 4.48 10^3/uL (3.29-11.43) 08/27/24 23: RBC 3.30 10^6/uL (3.85-5.65) L 08/27/24 23: Hgb 11.00 g/dL (11.27-16.99) L 08/27/24 23: Hct 33.6 % (37-53) L 08/27/24: MCV 101.8 fl (82-101) H 08/27/24 23: MCH 33.3 pg (27-33) H 08/27/24 23: MCHC 32.7 g/dL (30-55) 08/27/24 23: RDW 15.7 % (12.1-15.1) H 08/27/24 23: Plt Count 98 10^3/cmm (157-399) L 08/27/24 23:25 MPV 9.9 fL (7.4-10.4) 08/27/24 23: Neut % (Auto) 58.7 % 08/27/24 23: Lymph % (Auto) 27.2 % 03/15/25 23:25 [place] % (Auto) 7.6 % 08/27/24 23:25 Eos % (Auto) 4.5 % 08/27/24 23: Baso % (Auto) 1.6 % 08/27/24 23: Neut # (Auto) 2.63 10^3/uL (1.8-7.7) 08/27/24 23: Lymph # (Auto) 1.2 10^3/uL (0.8-4.8) 08/27/24 23: [place] # (Auto) 0.3 10^3/uL (0.2-0.9) 08/27/24 23: Eos # (Auto) 0.2 10^3/uL (0.0-0.8) 08/27/24: Baso # (Auto) 0.1 10^3/uL (0.0-0.1) 08/27/24 23: Nucleated RBC % (auto) 0 % 08/27/24: Nucleated RBCs # 0.0 /100WBC 08/27/24 23:25 Sodium 138 mmol/L (136-145) 08/27/24 23:25 Potassium 3.7 mmol/L (3.5-5.1) 08/27/24 23:25 Chloride 102 mmol/L (98-107) 08/27/24 23:25 Carbon Dioxide 24 mmol/L (22-29) 08/27/24 23:25 Anion Gap 15.7 (5-19) 08/27/24 23:25 BUN 39 mg/dL (6-20) H 08/27/24 23:25 Creatinine 1.5 mg/dL (0.7-1.2) H 08/27/24 23:25 GFR Calculation 49.1 mL/min (90-130) L 08/27/24 23:25 Glucose 101 mg/dL (65-115) 08/27/24 23:25 Calculated Osmolality 296 mOsm/kg (285-295) H 08/27/24 23:25 Calcium 10.1 mg/dL (8.5-10.5) 08/27/24 23:25 XR interpretation done by ED provider, pending radiology final review Discharge Plan Discharge Patient Disposition: Home Clinical Impression: Cirrhosis, Weakness Condition: Stable Prescriptions: No Action aspirin [Aspir-81] 81 mg Tablet,Delayed Release (Dr/Ec) 81 mg PO DAILY pantoprazole [Protonix] 40 mg Tablet,Delayed Release (Dr/Ec) 40 mg PO DAILY PRN (Reason: Acid Reflux) ondansetron 4 mg Tablet,Disintegrating 4 mg PO Q6H PRN (Reason: Nausea And Vomiting) spironolactone 100 mg tablet 100 mg PO DAILY metolazone 5 mg tablet 5 mg PO DAILY albuterol sulfate 90 mcg/actuation HFA aerosol inhaler 1 puff INHALATION Q4H PRN (Reason: Shortness Of Breath) Discharge Orders: Discharge ED (Routine); Ordered 08/28/24 Ordered By: Jules Barrera Referrals: Larissa Fuller FNP [Primary Care Provider] - Discharge Diet: Low Salt Discharge Activity: Limit activity as instructed Patient Instructions: Opioid Safety, Pain Management Activity Restrictions/Additional Instructions: 1. Rest, fluids and take Rx as directed. 2. Keep blood pressure log. Keep follow up with PCP on Thursday. 3. Return to ED for new or worsening symptoms. Print Language: Wolof Coding Level of Care Code ED [facility] Transplanter for Chg Fwd Related Data Home Medications ?Medication ?Instructions ?Recorded ?Confirmed aspirin 81 mg tablet,delayed 81 mg PO DAILY 06/16/24 0 08/04/24 release ondansetron 4 mg disintegrating 4 mg PO Q6H PRN Nausea And Vomiting 06/16/24 08/04/24 tablet pantoprazole 40 mg tablet,delayed 40 mg PO DAILY PRN A ayan Reflux 06/16/24 08/04/24 release (Protonix) albuterol sulfate 90 mcg/actuation 1 puff inhalation Q 4H PRN 08/04/24 08/04/24 aerosol inhaler Shortness Of Breath metolazone 5 mg tablet 5 mg PO DAILY 08/04/2408/04 spironolactone 100 mg tablet 100 mg PO DAILY 08/04/24 08/04/24 Allergies Allergy/AdvReac Type Severity Reaction Status Date / Time morphine Allergy ADR-Nausea Verified 08/27/24 22:38
[2024-08-28 01:00] VITALS: BP 102/76; PULSE 81; RESP 16; O2SAT 100
--- NOTE | 2024-08-28 01:11 | PC.NURSE ---
assumed care of patient at 0030am
[2024-08-28 01:25] LABS: Influenza A NEGATIVE (Negative); Influenza B NEGATIVE (Negative); Respiratory Syncytial Virus Ce NEGATIVE (Negative); SARS-CoV-2 PCR NEGATIVE (Negative)
[2024-08-28 01:26] VITALS: BP 109/70; PULSE 70; RESP 16; TEMP 37.1; O2SAT 99
== END 2024-08-28 01:30 | disposition home or self-care (01) ==
PROVIDERS: Emergency Provider Family Medicine; PCP Nurse Practitioner
DX: K74.60 Unspecified cirrhosis of liver (principal); R53.1 Weakness; Z79.82 Long term (current) use of aspirin
CPT/HCPCS: 71045; 80048; 85025; 87637; 99284

== ENCOUNTER 2024-09-19 20:18 | Inpatient (IN) | payer OTHER, SELFPAY ==
[2024-09-19 20:20] VITALS: BP 118/81; PULSE 108; RESP 20; TEMP 37.3; O2SAT 95
[2024-09-19 20:45] LABS: Mean Corpuscular HGB Conc 33.5 g/dL (30-55); Mean Corpuscular Hemoglobin 32.7 pg (27-33); Mean Corpuscular Volume 97.6 fl (82-101); Mean Platelet Volume 10.6 fL (7.4-10.4); Platelet Count 68 10^3/cmm (157-399); Red Cell Distribution Width 15.1 % (12.1-15.1)
[2024-09-19 20:56] LABS: INR 2.02 (0.8-1.2)
[2024-09-19 21:01] LABS: Alanine Aminotransferase 17 U/L (0-41); Albumin Level 3.5 g/dL (3.5-5.2); Alkaline Phosphatase 77 U/L (40-130); Anion Gap 26.2 (5-19); Aspartate Amino Transferase 36 U/L (0-40); Blood Urea Nitrogen 19 mg/dL (6-20); Calcium 9.3 mg/dL (8.5-10.5); Carbon Dioxide 21 mmol/L (22-29); Chloride 93 mmol/L (98-107); Creatinine Clr Calc Pharmacy 37.5318; Globulin 3.9 g/dL (1.3-4.6); Glomerular Filtration Rate 28.6 mL/min (90-130); Glucose 143 mg/dL (65-115); Lipase 34 U/L (13-60); Osmolality Calculated 289 mOsm/kg (285-295); Potassium 3.2 mmol/L (3.5-5.1); Sodium 137 mmol/L (136-145); Total Bilirubin 5.1 mg/dL (0.15-1.2); Total Protein 7.4 g/dL (6.6-8.7)
[2024-09-19 21:16] LABS: Slide Review Slide Review Perform
[2024-09-19 21:17] LABS: Total Cells Counted 100 (0-100)
[2024-09-19 21:18] LABS: Absolute Segmented Neutrophil 9.1 10/cmm (1.6-7.1); Band Neutrophils Absolute 1.6 10^3/cmm (0.0-1.2); Lymphocytes 2 %; Segmented Neutrophils 82 %
[2024-09-19 21:19] LABS: Absolute Neutrophil 10.7 10^3/cmm (1.4-6.5); Eosinophils 0 %; Platelet Estimate Decreased (Normal)
[2024-09-19 22:26] VITALS: BP 105/74; PULSE 89; O2SAT 97
--- NOTE | 2024-09-19 22:38 | W.ED.ABDPA2 ---
Documented by User: Óscar Barrera DO 09/19/24 22:41 HPI - Abdominal Pain General: Chief Complaint: Abdominal Pain Stated Complaint: V\ABD Pain Time Seen by Provider: 09/19/24 22:15 History of Present Illness: Patient presents to the ER with a history of abdominal pain and nausea vomiting with shortness of breath. Patient does have cirrhosis of the liver and gets paracentesis frequently with the last one being about a month ago. Patient has seen hepatology in [place], general surgery here, he states that our general surgeon is going to set him up with a transplant surgeon in [place] but this has not happened yet. Patient also states that they do not want to put in a paracentesis type drain that he can drain himself because that via portal for infection. Patient states he has a physician coming tomorrow to his house to help him with his pain and anxiety and that his PCP set it up for him. Patient is wanting to get pain control for the meantime. Related Data Home Medications ?Medication ?Instructions ?Recorded ?Confirmed ondansetron 4 mg disintegrating 4 mg PO Q6H PRN Nausea And Vomiting 06/16/24 09/20/24 tablet albuterol sulfate 90 mcg/actuation 1 puff inhalation Q4H PRN 08/04/24 09/20/24 aerosol inhaler Shortness Of Breath allopurinol 300 mg tablet 300 mg PO DAILY 09/05/24 09/20/24 alprazolam 0.25 mg tablet 0.25 mg PO .PRN 09/05/24 09/20/24 furosemide 20 mg tablet 20 mg PO DAILY 09/05/24 09/20/24 midodrine 10 mg tablet 5 mg PO TID 09/05/24 09/20/24 Allergies Allergy/AdvReac Type Severity Reaction Status Date / Time morphine Allergy ADR-Nausea Verified 09/05/24 10:18 Review of Systems General: Reports: 10 or more systems reviewed and unremarkable except in HPI and below PFSH ED PFSH: Social History Smoking and tobacco/nicotine status: never used tobacco/nicotine Physical Exam Const: COMMON NORMALS: no acute distress, average body habitus, patient oriented x3, no limitations, healthy appearing, alert and well nourished HENMT: COMMON NORMALS: normocephalic, atraumatic, hearing grossly normal bilaterally, external ears normal, Normal external nose present, moist oral mucous membranes and oropharynx normal HEAD & SCALP: normocephalic and atraumatic NOSE: Normal external nose present EXTERNAL EAR: Yes external ears normal Neck/C-Spine: COMMON NORMALS: no JVD Chest: COMMONS NORMALS: normal inspection of the chest and normal palpation of entire chest wall Resp: COMMON NORMALS: normal respiratory effort, No retractions, No use of accessory muscles and clear to auscultation bilaterally AUSCULTATION: clear to auscultation bilaterally Cardio: COMMON NORMALS: no JVD, regular rate, regular rhythm, S1 normal heart sound present, S2 normal heart sound present, No gallops present (Cardio), No clicks present (Cardio), No murmurs present (Cardio) and No rub (Cardio) RATE: regular rate RHYTHM: regular rhythm HEART SOUNDS: S1 normal heart sound present and S2 normal heart sound present GI: COMMON NORMALS: Soft to palpation and no masses; negative for non-tender (Mild tenderness to palpation diffusely) PALPATION: Yes Soft to palpation OTHER: Soft mildly distended Neuro: COMMON NORMALS: patient oriented x3 SENSORIUM/ORIENTATION: Yes alert Course Vital Signs: Vital signs: Vital Signs Temperature 97.4 F L 09/20/24 06:00 Pulse Rate 92 09/20/24 08:39 Respiratory Rate 16 09/20/24 00:55 Blood Pressure 109/81 09/20/24 08:39 Pulse Oximetry 96 09/20/24 08:39 Oxygen Delivery Me thod Room Air 09/20/24 08:52 MDM - Abdominal Pain Medical Records I reviewed the patient's medical records. Lab Data I reviewed the patient's lab results. 09/20/24 06:04 09/20/24 06:04 Labs/Radiology: Radiology Impressions Abdomen/Pelvis CT 09/19/24 22:40 IMPRESSION: 1. Cirrhotic liver morphology with sequela of portal hypertension including perisplenic varices and moderate to large abdominopelvic ascites. 2. Diffuse thickening of small and large bowel, may be reactive due to ascites, enteritis/colitis would be less likely. 3. Mural bladder wall thickening, likely representing reactive edema, if there is concern for cystitis correlation with urinalysis is recommended. 4. Stable aneurysmal dilatation of the abdominal aorta measuring up to 4.1 cm. 5. Emphysema. Chest X-Ray 09/20/24 06:45 IMPRESSION: 1. No acute finding. 2. Mild bilateral plaque atelectasis. Laboratory Results WBC 13.63 10^3/uL (3.29-11.43) H 09/20/24 06:04 RBC 3.70 10^6/uL (3.85-5.65) L 09/20/24 06:04 Hgb 12.00 g/dL (11.27-16.99) 09/20/24 06:04 Hct 35.5 % (37-53) L 09/20/24 06:04 MCV 95.9 fl (82-101) 09/20/24 06:04 MCH 32.4 pg (27-33) 09/20/24 06:04 MCHC 33.8 g/dL (30-55) 09/20/24 06:04 RDW 15.0 % (12.1-15.1) 09/20/24 06:04 Plt Count 51 10^3/cmm (157-399) L 09/20/24 06:04 MPV 11.4 fL (7.4-10.4) H 09/20/24 06:04 Neut % (Auto) 89.3 % 09/20/24 06:04 Lymph % (Auto) 6.2 % 09/20/24 06:04 [place] % (Auto) 3.0 % 09/20/24 06:04 Eos % (Auto) 0.3 % 09/20/24 06:04 Baso % (Auto) 0.4 % 09/20/24 06:04 Neut # (Auto) 12.17 10^3/uL (1.8-7.7) H 09/20/24 06:04 Lymph # (Auto) 0.9 10^3/uL (0.8-4.8) 09/20/24 06:04 [place] # (Auto) 0.4 10^3/uL (0.2-0.9) 09/20/24 06:04 Eos # (Auto) 0.0 10^3/uL (0.0-0.8) 09/20/24 06:04 Baso # (Auto) 0.1 10^3/uL (0.0-0.1) 09/20/24 06:04 Nucleated RBC % (auto) 0 % 09/20/24 06:04 Total Counted 100 (0-100) 09/19/24 20:38 Atypical Lymphs % Not Reportable 09/19/24 20:38 Absolute Neutrophils 10.7 10^3/cmm (1.4-6.5) H 09/19/24 20:38 Segmented Neutrophils 82 % 09/19/24 20:38 Band Neutrophils 14.0 % 09/19/24 20:38 Lymphocytes (Manual) 2 % 09/19/24 20:38 Monocytes (Manual) 0.0 % 09/19/24 20: Absolute Monocytes 0.0 10^3/cmm (0.1-0.6) L 09/19/24 20: Eosinophils (Manual) 0 % 09/19/24: Absolute Eosinophils 0.0 10^3/cmm (0.0-0.7) 09/19/24 20: Basophils (Manual) 0.0 % 09/19/24: Absolute Basophils 0.0 10^3/cmm (0.0-0.2) 09/19/24 20: Metamyelocytes 2.0 % 09/19/24: Nucleated RBCs # 0.0 /100WBC 09/20/24 06:04 Platelet Estimate Decreased (Normal) 09/19/24 20:38 PT 24.10 SECONDS (12.1-14.9) H 09/19/24 20:38 INR 2.02 (0.8-1.2) H 09/19/24 20:38 Sodium 136 mmol/L (136-145) 09/20/24 06:04 Potassium 3.5 mmol/L (3.5-5.1) 09/20/24 06:04 Chloride 96 mmol/L (98-107) L 09/20/24 06:04 Carbon Dioxide 25 mmol/L (22-29) 09/20/24 06:04 Anion Gap 18.5 (5-19) 09/20/24 06:04 BUN 25 mg/dL (6-20) H 09/20/24 06:04 Creatinine 2.2 mg/dL (0.7-1.2) H 09/20/24 06:04 GFR Calculation 31.6 mL/min (90-130) L 09/20/24 06:04 Glucose 122 mg/dL (65-115) H 09/20/24 06:04 Calculated Osmolality 288 mOsm/kg (285-295) 09/20/24 06:04 Lactic Acid 5.7 mmol/L (0.5-2.2) H* 09/20/24 06:04 Calcium 9.0 mg/dL (8.5-10.5) 09/20/24 06:04 Magnesium 1.2 mg/dL (1.7-2.3) L 09/20/24 06:04 Total Bilirubin 3.9 mg/dL (0.15-1.2) H 09/20/24 06:04 AST 30 U/L (0-40) 09/20/24 06:04 ALT 15 U/L (0-41) 09/20/24 06:04 Alkaline Phosphatase 61 U/L (40-130) 09/20/24 06:04 Ammonia 65 umol/L (16-60) H 09/20/24 06:04 Total Protein 6.6 g/dL (6.6-8.7) 09/20/24 06:04 Albumin 3.3 g/dL (3.5-5.2) L 09/20/24 06:04 Globulin 3.3 g/dL (1.3-4.6) 09/20/24 06:04 Lipase 19 U/L (13-60) 09/20/24 06:04 Urine Color Dark yellow (Yellow) A 09/20/24 06:37 Urine Appearance Slightly cloudy (CLEAR) 09/20/24 06:37 Urine pH 5 (5-7) 09/20/24 06:37 Ur Specific Flushing 1.020 (1.005-1.030) 09/20/24 06:37 Urine Protein 1+ (Negative) A 09/20/24 06:37 Urine Glucose (UA) Norm (Normal) 09/20/24 06:37 Urine Ketones 1+ (Negative) H 09/20/24 06:37 Urine Blood 3+ (Negative) A 09/20/24 06:37 Urine Nitrate Negative (Negative) 09/20/24 06:37 Urine Bilirubin 1+ (Negative) H 09/20/24 06:37 Urine Urobilinogen 4 mg/dL (Negative) H 09/20/24 06:37 Ur Leukocyte Esterase Trace (Negative) A 09/20/24 06:37 Urine RBC >100 /hpf (0-2) H 09/20/24 06:37 Urine WBC 5-10 /hpf (0-5) H 09/20/24 06:37 Ur Squamous Epith Cells 0-5 /hpf (0-5) 09/20/24 06:37 Amorphous Sediment Not Reportable 09/20/24 06:37 Urine Bacteria None seen /hpf (NONE) 09/20/24 06:37 Hyaline Casts 45-50 /lpf 09/20/24 06:37 Ethyl Alcohol < 10 mg/dL (0-10) 09/20/24 06:04 All radiology interpretation(s) finalized by discharge Discharge Plan Discharge Patient Disposition: Admitted As Inpatient Admit Provider: Adan Altamirano Clinical Impression: Sepsis, SBP (spontaneous bacterial peritonitis), Alcoholic cirrhosis of liver Condition: Stable Coding Level of Care Code ED Internet Researcher for Chg Fwd Documented by User: Freddie Harden DO 09/20/24 10:23 HPI - Abdominal Pain General: Chief Complaint: Abdominal Pain Stated Complaint: V\ABD Pain Time Seen by Provider: 09/19/24 22:15 Related Data Home Medications ?Medication ?Instructions ?Recorded ?Confirmed ondansetron 4 mg disintegrating 4 mg PO Q6H PRN Nausea And Vomiting 06/16/24 09/20/24 tablet albuterol sulfate 90 mcg/actuation 1 puff inhalation Q4H PRN 08/04/24 09/20/24 aerosol inhaler Shortness Of Breath allopurinol 300 mg tablet 300 mg PO DAILY 09/05/24 09/20/24 alprazolam 0.25 mg tablet 0.25 mg PO .PRN 09/05/24 09/20/24 furosemide 20 mg tablet 20 mg PO DAILY 09/05/24 09/20/24 midodrine 10 mg tablet 5 mg PO TID 09/05/24 09/20/24 Allergies Allergy/AdvReac Type Severity Reaction Status Date / Time morphine Allergy ADR-Nausea Verified 09/05/24 10:18 [facility] ED PFSH: Social History Smoking and tobacco/nicotine status: never used tobacco/nicotine Course Vital Signs: Vital signs: Vital Signs Temperature 97.4 F L 09/20/24 06:00 Pulse Rate 92 09/20/24 08:39 Respiratory Rate 16 09/20/24 00:55 Blood Pressure 109/81 09/20/24 08:39 Pulse Oximetry 96 09/20/24 08:39 Oxygen Delivery Me thod Room Air 09/20/24 08:52 MDM - Abdominal Pain Medical Decision Making Care assumed at change of shift (~0555) tachycardic with low-grade fever history of ascites alcoholic liver cirrhosis INR is elevated. Blood cultures lactic series ordered will get a ultrasound paracentesis to do ascites fluid culture. Last paracentesis approximately 1 month ago recheck temp. Patient is also hypokalemic to check a magnesium IV potassium supplement. Mild acute kidney injury noted on labs as well. IV fluids ordered. Patient does have a metabolic acidosis with an elevated anion gap. Fluids that should help with this may need to reevaluate will also give blood alcohol level. Metabolic acidosis could be from acute renal failure from alcohol use or infection. Lactic acid elevated at 5.7 repeat white count increased. Believe he likely does has SBP. His anion gap has improved. Will start him on ceftriaxone cultures are being done. Additionally we have arranged for a paracentesis. Discussed with radiology and the speech therapist technician will need to be mindful of his blood pressure with the paracentesis too much fluid could drop his blood pressure enough to require pressors he is blood pressure has been soft since he was admitted to the ER. We do need to get some fluid for culture. Discussed with the hospitalist as well will place in the ICU if he does have some initial hypotension after the paracentesis we discussed administering albumin. He has received a sepsis bolus. Lab Data 09/20/24 06:04 09/20/24 06:04 Labs/Radiology: Radiology Impressions Abdomen/Pelvis CT 09/19/24 22:40 IMPRESSION: 1. Cirrhotic liver morphology with sequela of portal hypertension including perisplenic varices and moderate to large abdominopelvic ascites. 2. Diffuse thickening of small and large bowel, may be reactive due to ascites, enteritis/colitis would be less likely. 3. Mural bladder wall thickening, likely representing reactive edema, if there is concern for cystitis correlation with urinalysis is recommended. 4. Stable aneurysmal dilatation of the abdominal aorta measuring up to 4.1 cm. 5. Emphysema. Chest X-Ray 09/20/24 06:45 IMPRESSION: 1. No acute finding. 2. Mild bilateral plaque atelectasis. Laboratory Results WBC 13.63 10^3/uL (3.29-11.43) H 09/20/24 06:04 RBC 3.70 10^6/uL (3.85-5.65) L 09/20/24 06:04 Hgb 12.00 g/dL (11.27-16.99) 09/20/24 06:04 Hct 35.5 % (37-53) L 09/20/24 06:04 MCV 95.9 fl (82-101) 09/20/24 06:04 MCH 32.4 pg (27-33) 09/20/24 06:04 MCHC 33.8 g/dL (30-55) 09/20/24 06:04 RDW 15.0 % (12.1-15.1) 09/20/24 06:04 Plt Count 51 10^3/cmm (157-399) L 09/20/24 06:04 MPV 11.4 fL (7.4-10.4) H 09/20/24 06:04 Neut % (Auto) 89.3 % 09/20/24 06:04 Lymph % (Auto) 6.2 % 09/20/24 06:04 [place] % (Auto) 3.0 % 09/20/24 06:04 Eos % (Auto) 0.3 % 09/20/24 06:04 Baso % (Auto) 0.4 % 09/20/24 06:04 Neut # (Auto) 12.17 10^3/uL (1.8-7.7) H 09/20/24 06:04 Lymph # (Auto) 0.9 10^3/uL (0.8-4.8) 09/20/24 06:04 [place] # (Auto) 0.4 10^3/uL (0.2-0.9) 09/20/24 06:04 Eos # (Auto) 0.0 10^3/uL (0.0-0.8) 09/20/24 06:04 Baso # (Auto) 0.1 10^3/uL (0.0-0.1) 09/20/24 06:04 Nucleated RBC % (auto) 0 % 09/20/24 06:04 Total Counted 100 (0-100) 09/19/24 20:38 Atypical Lymphs % Not Reportable 09/19/24 20:38 Absolute Neutrophils 10.7 10^3/cmm (1.4-6.5) H 09/19/24 20:38 Segmented Neutrophils 82 % 09/19/24 20:38 Band Neutrophils 14.0 % 09/19/24 20:38 Lymphocytes (Manual) 2 % 09/19/24 20:38 Monocytes (Manual) 0.0 % 09/19/24 20:38 Absolute Monocytes 0.0 10^3/cmm (0.1-0.6) L 09/19/24 20:38 Eosinophils (Manual) 0 % 09/19/24 20:38 Absolute Eosinophils 0.0 10^3/cmm (0.0-0.7) 09/19/24 20:38 Basophils (Manual) 0.0 % 09/19/24:38 Absolute Basophils 0.0 10^3/cmm (0.0-0.2) 09/19/24 20:38 Metamyelocytes 2.0 % 09/19/24 20:38 Nucleated RBCs # 0.0 /100WBC 09/20/24 06:04 Platelet Estimate Decreased (Normal) 09/19/24 20:38 PT 24.10 SECONDS (12.1-14.9) H 09/19/24 20:38 INR 2.02 (0.8-1.2) H 09/19/24 20:38 Sodium 136 mmol/L (136-145) 09/20/24 06:04 Potassium 3.5 mmol/L (3.5-5.1) 09/20/24 06:04 Chloride 96 mmol/L (98-107) L 09/20/24 06:04 Carbon Dioxide 25 mmol/L (22-29) 09/20/24 06:04 Anion Gap 18.5 (5-19) 09/20/24 06:04 BUN 25 mg/dL (6-20) H 09/20/24 06:04 Creatinine 2.2 mg/dL (0.7-1.2) H 09/20/24 06:04 GFR Calculation 31.6 mL/min (90-130) L 09/20/24 06:04 Glucose 122 mg/dL (65-115) H 09/20/24 06:04 Calculated Osmolality 288 mOsm/kg (285-295) 09/20/24 06:04 Lactic Acid 5.7 mmol/L (0.5-2.2) H* 09/20/24 06:04 Calcium 9.0 mg/dL (8.5-10.5) 09/20/24 06:04 Magnesium 1.2 mg/dL (1.7-2.3) L 09/20/24 06:04 Total Bilirubin 3.9 mg/dL (0.15-1.2) H 09/20/24 06:04 AST 30 U/L (0-40) 09/20/24 06:04 ALT 15 U/L (0-41) 09/20/24 06:04 Alkaline Phosphatase 61 U/L (40-130) 09/20/24 06:04 Ammonia 65 umol/L (16-60) H 09/20/24 06:04 Total Protein 6.6 g/dL (6.6-8.7) 09/20/24 06:04 Albumin 3.3 g/dL (3.5-5.2) L 09/20/24 06:04 Globulin 3.3 g/dL (1.3-4.6) 09/20/24 06:04 Lipase 19 U/L (13-60) 09/20/24 06:04 Urine Color Dark yellow (Yellow) A 09/20/24 06:37 Urine Appearance Slightly cloudy (CLEAR) 09/20/24 06:37 Urine pH 5 (5-7) 09/20/24 06:37 Ur Specific [place] 1.020 (1.005-1.030) 09/20/24 06:37 Urine Protein 1+ (Negative) A 09/20/24 06:37 Urine Glucose (UA) Norm (Normal) 09/20/24 06:37 Urine Ketones 1+ (Negative) H 09/20/24 06:37 Urine Blood 3+ (Negative) A 09/20/24 06:37 Urine Nitrate Negative (Negative) 09/20/24 06:37 Urine Bilirubin 1+ (Negative) H 09/20/24 06:37 Urine Urobilinogen 4 mg/dL (Negative) H 09/20/24 06:37 Ur Leukocyte Esterase Trace (Negative) A 09/20/24 06:37 Urine RBC >100 /hpf (0-2) H 09/20/24 06:37 Urine WBC 5-10 /hpf (0-5) H 09/20/24 06:37 Ur Squamous Epith Cells 0-5 /hpf (0-5) 09/20/24 06:37 Amorphous Sediment Not Reportable 09/20/24 06:37 Urine Bacteria None seen /hpf (NONE) 09/20/24 06:37 Hyaline Casts 45-50 /lpf 09/20/24 06:37 Ethyl Alcohol < 10 mg/dL (0-10) 09/20/24 06:04 Discharge Plan Discharge Patient Disposition: Admitted As Inpatient Admit Provider: Adan Altamirano Clinical Impression: Sepsis, SBP (spontaneous bacterial peritonitis), Alcoholic cirrhosis of liver Condition: Stable Coding Level of Care Code ED Internet Researcher for Uday Benjamin
--- NOTE | 2024-09-19 22:40 | CTR_ITS ---
PROCEDURE INFORMATION: Exam: CT Abdomen And Pelvis Without Contrast Exam date and time: 09/19/2024 11:14 PM Age: 53 years old Clinical indication: Abdominal pain; Generalized; Additional info: Abdominal pain, ascites, cirrhosis TECHNIQUE: Imaging protocol: Computed tomography of the abdomen and pelvis without contrast. Radiation optimization: All CT scans at this facility use at least one of these dose optimization techniques: automated exposure control; mA and/or kV adjustment per patient size (includes targeted exams where dose is matched to clinical indication); or iterative reconstruction. COMPARISON: [place] [id number] 08/15/2024 10:25 PM RADIATION DOSE METRICS: Total DLP (mGy-cm): 547.96 FINDINGS: Lungs: Emphysema and bibasilar atelectasis. Liver: Cirrhotic liver morphology. Gallbladder and biliary ducts: Gallbladder surgically absent. Pancreas: Normal. No ductal dilation. Spleen: Mild splenomegaly. Calcified granulomas within the spleen. Adrenal glands: Normal. No mass. Kidneys and ureters: Normal. No hydronephrosis. Stomach and bowel: Mild sigmoid diverticulosis. Appendix: No evidence of appendicitis. Intraperitoneal space: Diffuse edema within small and large bowel, likely reactive due to ascites, however may also represent mild enteritis/colitis. Moderate to large abdominopelvic ascites. Vasculature: Stable aneurysmal dilatation of the abdominal aorta measuring up to 4.1 cm. Lymph nodes: Unremarkable. No enlarged lymph nodes. Urinary bladder: Circumferential bladder wall thickening. Reproductive: Prostate calcifications. Bones/joints: No acute fracture. Bilateral L5 pars defects. Soft tissues: Small fat containing umbilical hernia. Additional upper abdominal anterior wall hernia which measures up to 2.5 cm at its neck and contains fat and ascites. CT/CT abdomen pelvis wo con [id number] IMPRESSION: 1. Cirrhotic liver morphology with sequela of portal hypertension including perisplenic varices and moderate to large abdominopelvic ascites. 2. Diffuse thickening of small and large bowel, may be reactive due to ascites, enteritis/colitis would be less likely. 3. Mural bladder wall thickening, likely representing reactive edema, if there is concern for cystitis correlation with urinalysis is recommended. 4. Stable aneurysmal dilatation of the abdominal aorta measuring up to 4.1 cm. 5. Emphysema.
[2024-09-19 22:45] VITALS: BP 103/80; PULSE 92; O2SAT 97
[2024-09-19] MEDS: ondansetron 2 mg/ML SDV 2 mL 4 MG IVP (22:57)
[2024-09-19] MEDS: HYDROmorphone 0.5 MG/0.5 ML INJ 1 MG IVP (22:59)
[2024-09-19 23:03] VITALS: BP 104/75; PULSE 87; O2SAT 98
[2024-09-20] VITALS (57 sets, daily range): BP systolic 81–132; BP diastolic 54–84; PULSE 77–102; RESP 8–24; TEMP 36.3–36.8; O2SAT 90–100; BMI 27.3
[2024-09-20] MEDS: HYDROmorphone 0.5 MG/0.5 ML INJ 1 MG IVP (01:11)
--- NOTE | 2024-09-20 05:52 | US_ITS ---
WS: [id number] ULTRASOUND-GUIDED THERAPEUTIC AND DIAGNOSTIC PARACENTESIS Procedure, risks, and complications have been explained to the patient. Consent is obtained. Utilizing aseptic technique and 1% buffered lidocaine, a small dermatome was made through which a 5 [place] catheter was inserted. Approximately 6000 ml of clear peritoneal fluid was obtained without difficulty. No complications encountered. Fluid collected for analysis. US/US paracentesis abd w [id number] IMPRESSION: Uncomplicated paracentesis yielding 6000 ml of peritoneal fluid.
[2024-09-20] MEDS: sodium chloride 0.9% 1,000 ML 999 ML IV ×2 (06:12→07:18)
[2024-09-20 06:15] LABS: Basophils # 0.1 10^3/uL (0.0-0.1); Basophils % 0.4 %; Eosinophils % 0.3 %; Hematocrit 35.5 % (37-53); Lymphocytes # 0.9 10^3/uL (0.8-4.8); Lymphocytes % 6.2 %; Mean Corpuscular HGB Conc 33.8 g/dL (30-55); Mean Corpuscular Hemoglobin 32.4 pg (27-33); Mean Corpuscular Volume 95.9 fl (82-101); Mean Platelet Volume 11.4 fL (7.4-10.4); Monocytes # 0.4 10^3/uL (0.2-0.9); Neutrophils # 12.17 10^3/uL (1.8-7.7); Neutrophils % 89.3 %; Nucleated Red Blood Cells % 0 %; Platelet Count 51 10^3/cmm (157-399); White Blood Count 13.63 10^3/uL (3.29-11.43)
[2024-09-20] MEDS: potassium chloride premix 100 ML 25 MEQ IV (06:19)
[2024-09-20] MEDS: HYDROmorphone 0.5 MG/0.5 ML INJ IVP (06:22)
[2024-09-20 06:32] LABS: Alanine Aminotransferase 15 U/L (0-41); Albumin Level 3.3 g/dL (3.5-5.2); Alkaline Phosphatase 61 U/L (40-130); Anion Gap 18.5 (5-19); Aspartate Amino Transferase 30 U/L (0-40); Blood Urea Nitrogen 25 mg/dL (6-20); Carbon Dioxide 25 mmol/L (22-29); Chloride 96 mmol/L (98-107); Creatinine Clr Calc Pharmacy 40.9438; Globulin 3.3 g/dL (1.3-4.6); Glomerular Filtration Rate 31.6 mL/min (90-130); Glucose 122 mg/dL (65-115); Lipase 19 U/L (13-60); Magnesium 1.2 mg/dL (1.7-2.3); Osmolality Calculated 288 mOsm/kg (285-295); Potassium 3.5 mmol/L (3.5-5.1); Sodium 136 mmol/L (136-145); Total Bilirubin 3.9 mg/dL (0.15-1.2); Total Protein 6.6 g/dL (6.6-8.7)
[2024-09-20 06:35] LABS: Alcohol Level < 10 mg/dL (0-10)
[2024-09-20 06:37] LABS: Lactic Sepsis W/Reflex 5.7 mmol/L (0.5-2.2)
[2024-09-20 06:38] LABS: Ammonia 65 umol/L (16-60)
--- NOTE | 2024-09-20 06:45 | XR_ITS ---
WS: [id number] Exam: XR chest 1V portable [id number] Date/Time of Exam: 09/20/2024 7:22 AM Reason For Exam: dyspnea Comparison 08/28/2024. The lungs are fully inflated. Areas of mild plaque atelectasis in the mid and lower lung zones. No consolidated infiltrates. Unremarkable cardiomediastinal silhouette. Bony structures are intact. XR/XR chest 1V portable [id number] IMPRESSION: 1. No acute finding. 2. Mild bilateral plaque atelectasis.
[2024-09-20 06:52] LABS: Bacteria Urine None Seen /hpf; Squamous Epithelial Cell Urine 0-5 /hpf (0-5)
[2024-09-20] MEDS: magnesium sulfate premix 2 GM/50 ML PIGGYBACK IV (07:19)
[2024-09-20] MEDS: cefTRIAXone 2,000 mg SDV 2000 MG IVP (07:19)
[2024-09-20 07:25] LABS: Slide Review Slide Review Perform
[2024-09-20] MEDS: prochlorperazine 10 mg/2 mL Inj IVP (07:30)
[2024-09-20 07:41] LABS: Urine Appearance Slightly Cloudy (CLEAR); Urine Color Dark Yellow (Yellow)
[2024-09-20 07:42] LABS: Add Urine Microscopic? YES; Bilirubin Urine 1+ (Negative); Blood Urine 3+ (Negative); Glucose Urine UA Norm (Normal); Ketones Urine 1+ (Negative); Leukocyte Esterase Urine Trace (Negative); Nitrate Urine Negative (Negative); Protein Urine 1+ (Negative); Urobilinogen Urine 4 mg/dL (Negative); pH Urine 5 (5-7)
[2024-09-20 07:43] LABS: UA Slide Review UA Slide Review Perf
[2024-09-20 07:44] LABS: RBC Urine >100 /hpf (0-2)
[2024-09-20 07:45] LABS: Hyaline Casts Urine 45-50 /lpf
[2024-09-20 07:46] LABS: Add Urine Culture? Yes
[2024-09-20 07:57] LABS: Reflex Lactate Order REFLEX LACTIC ORDERD
--- NOTE | 2024-09-20 08:10 | PC.NURSE ---
Patient is not normally on oxygen at approximately 7am Dr. Harden took the patient off his oxygen and his O2 sats were 92, 93%. When patient would doze off his oxygen sats would drop down to 86, 87%. I placed the patient back on 2 liters of oxygen since he kept dozing off. Patient states he is normally not on oxygen. I asked patient if he had ever been told he had sleep apnea and he said it had been suggested to him but he did not believe it and did not do anything about it.
--- NOTE | 2024-09-20 08:52 | PC.NURSE ---
arrived from ED, transferred self to bed ao x4
--- NOTE | 2024-09-20 09:20 | PC.NURSE ---
dr eisenberg at bedside to do paracentesis
--- NOTE | 2024-09-20 10:01 | PC.NURSE ---
pulled 6,000 ml off in paracentesis
--- NOTE | 2024-09-20 10:35 | PC.NURSE ---
received v.o. from dr. ceballos for 25 gm albumin iv x1
[2024-09-20] MEDS: albumin 25 G/100 ML BAG 60 G IV (11:02)
[2024-09-20] MEDS: pantoprazole DR 40 mg Tablet PO (11:02)
[2024-09-20] MEDS: enoxaparin 30 mg/0.3 mL Syringe SUBCUT (11:02)
--- NOTE | 2024-09-20 11:06 | PM.HP ---
Providers/Chief Complaint Admitting Physician: Adan Altamirano Primary Care Provider: ALENA More Chief Complaint: V\ABD Pain History of Present Illness This is a patient with a history of liver cirrhosis, chronic kidney dysfunction, and emphysema presenting with diffuse abdominal pain accompanied by nausea, vomiting, and intermittent diarrhea. The patient reports feeling generally weak. In the emergency department, imaging revealed significant ascites (with approximately six liters of fluid removed) as well as bowel and bladder wall thickening, raising concerns for possible infection with spontaneous bacterial peritonitis. Incidentally noted on CT findings that may also suggest urinary tract infection and colitis with urinary bladder thickening as well as diffuse thickening of small and large bowel. The patient denies fever and chills but mentions dark urine. Additionally, decreased oral intake may be contributing to a worsening of his chronic kidney dysfunction. He also noted abstinence from alcohol for about four and a half months. Review of Systems Const: Denies: fever(s), chills, body aches or malaise ENMT: Denies: throat pain Card: Denies: chest pain, edema, pre-syncope or dyspnea on exertion Resp: Denies: dyspnea, productive cough, change in phlegm color or hemoptysis GI: Reports: abdominal pain, nausea and vomiting; Denies: diarrhea, constipation, hematochezia or melena : Reports: other (Dark urine); Denies: flank pain, difficulty urinating, urinary frequency or hematuria Musc: Denies: back pain, joint swelling or joint redness Skin/Breast: Denies: rash or new lesions Neuro: Denies: headache(s) or confusion Medications/Allergies Home Medications ?Medication ?Instructions ?Recorded ?Confirmed ?Last Taken ?Type ondansetron 4 mg disintegrating 4 mg PO Q6H PRN Nausea And Vomiting 06/16/24 09/20/24 06/16/24 History tablet albuterol sulfate 90 mcg/actuation 1 puff inhalation Q4H PRN 08/04/24 09/20/24 09/19/24 History aerosol inhaler Shortness Of Breath allopurinol 300 mg tablet 300 mg PO DAILY 09/05/24 09/20/24 09/20/24 History alprazolam 0.25 mg tablet 0.25 mg PO .PRN 09/05/24 09/20/24 Unknown History furosemide 20 mg tablet 20 mg PO DAILY 09/05/24 09/20/24 09/20/24 History midodrine 10 mg tablet 5 mg PO TID 09/05/24 09/20/24 09/20/24 History Allergies Allergy/AdvReac Type Severity Reaction Status Date / Time morphine Allergy ADR-Nausea Verified 09/05/24 10:18 PFSH Acute PFSH: Medical History (Updated 09/20/24 @ 11:18 by Adan Altamirano MD) Hx of colonic polyps Renal mass Emphysema lung Chronic kidney disease Cirrhosis Surgical History (Updated 09/20/24 @ 11:17 by Adan Altamirano MD) History of colonoscopy Hx of cholecystectomy Social History Smoking and tobacco/nicotine status: former use of tobacco/nicotine Alcohol intake: former Year of sobriety/quit date alcohol: 2023 Former alcohol use details: 4.5 months ago from this admit (09/20/24) Vitals/I&O/Wt Last Vital Signs Temp 97.4 F L 09/20/24 06:00 Pulse 92 09/20/24 08:39 Resp 16 09/20/24 00:55 BP 109/81 09/20/24 08:39 Pulse Ox 96 09/20/24 08:39 O2 Del Method Room Air 09/20/24 08:52 09/19/24 09/20/24 09/20/24 22:59 06:59 14:59 Intake Total 1050 / 1050 Balance 1050 / 1050 Weight last 48 hrs Weight 81.647 kg Weight 81.647 kg Physical Exam Narrative: Accompanied by his brothers. Const: COMMON NORMALS: patient oriented x3 and alert GENERAL APPEARANCE: cooperative ORIENTATION/CONSCIOUSNESS: Yes awake OTHER: Chronically ill-appearing. Mild jaundice. HENMT: COMMON NORMALS: oropharynx normal Neck/C-Spine: COMMON NORMALS: no JVD Resp: COMMON NORMALS: normal respiratory effort and clear to auscultation bilaterally AUSCULTATION: clear to auscultation bilaterally Cardio: COMMON NORMALS: no JVD, regular rhythm, S1 normal heart sound present, S2 normal heart sound present and No murmurs present (Cardio) RHYTHM: regular rhythm HEART SOUNDS: S1 normal heart sound present and S2 normal heart sound present GI: COMMON NORMALS: Soft to palpation INSPECTION: Yes abdominal distension PALPATION: Yes Soft to palpation and Yes Tenderness to palpation present (GI) (mod gen tend) Extremity: COMMON NORMALS: no joint enlargement and no pedal edema Neuro: COMMON NORMALS: patient oriented x3 and moves all extremities SENSORIUM/ORIENTATION: Yes alert Skin: COMMON NORMALS: no rashes or lesions noted GENERAL SKIN EXAM: no rashes or lesions noted Sepsis: Is patient septic: Yes Focused sepsis exam performed: Yes Focused sepsis exam: He is awake and alert, without mottling, cyanosis. Good capillary refill. Data 09/20/24 06:04 09/20/24 06:04 Micro: Microbiology 09/20/24 06:21 Blood Culture - Preliminary Blood SPECIMEN COLLECTED 09/20/24 06:18 Blood Culture - Preliminary Blood SPECIMEN COLLECTED A&P Assessment and plan (1) SBP (spontaneous bacterial peritonitis): Possible spontaneous bacterial peritonitis with abdominal pain, nausea and vomiting, with moderate to large ascites on CT, with enterocolitis incidentally noted, although he denies diarrhea. Possible sepsis with leukocytosis 13.6, sinus tachycardia 102, lactic acidosis 5.7, bands 14%. Blood culture has been collected. He has received empiric ceftriaxone, will continue at this time. Underwent paracentesis with removal of 6 L of fluid, ascitic fluid analysis, albumin, culture and Gram stain as well as cytology have been requested. Follow-up. Reviewed vitals, CBC, INR CMP, lactic acid, lipase, UA, CT abdomen pelvis, chest x-ray, ER provider note, discussed with her provider. (2) Decompensation of cirrhosis of liver: Liver cirrhosis with decompensation with moderate to large ascites, with INR 2.02, platelets low at 51,000, with hyperbilirubinemia 3.9, ammonia 65, with SBP. Underwent paracentesis with removal of 6 L of fluid. Labs requested. Monitor for risk of hypotension and shock. Requested 25 g 25% albumin infusion. May repeat depending on his hemodynamics. Monitor for risk of fluid overload. Initial admission to intensive care unit. Follow-up CMP, repeat INR. Follow-up CBC. (3) UTI (urinary tract infection): More than 100 RBC on UA, 510 WBC. Urinary bladder wall thickening on CT. Possible UTI, without sign of obstructive uropathy on imaging. With possible sepsis as above. Continue Blank antibiotic treatment with ceftriaxone at this time. Follow-up urine culture. (4) Enterocolitis: Incidentally noted on CT, has had nausea and vomiting, although no diarrhea. Could be reactive due to ascites and SBP. In case of diarrhea we will collect samples. (5) Acute kidney injury superimposed on CKD: BasedAKI on CKD, creatinine up to 2.2, creatinine around 1.51.7. Denies any NSAID use. Blood pressure is soft and did get down as low as 65/42, possible prerenal secondary to severe sepsis, possible ATN. Continue to monitor hemodynamics, support with pressors as needed. Monitor intake and output. Reassess renal parameters. On review of CT without obstructive uropathy. Possible hepatorenal syndrome but less likely given his presentation and hemodynamic abnormality. Give albumin as above. Will add midodrine. Question of possible renal mass in the past. Not visualized on CT, although studies noncontrast. Discussed with the patient and his family will see if we can request records from [email or web address] in [place] where he says he followed with regards to the possible kidney lesions. Plan Urinary bladder wall thickening: With hematuria, history of smoking, follow-up with urology after discharge. Emphysema: Incidentally noted on CT. Uses inhaler as needed at home Current kidney disease Liver cirrhosis: Is being referred for placement of transplant list. Last EtOH over 4.5 months ago. Reportedly had been following with hepatology in [place]. Does not seem to have had EGD in the past. Resume follow-up with surgery, hepatology after discharge. Consideration may be given to nonselective beta-sneha. 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 PDMP PDMP Reviewed: Not Reviewed Attestations Medical Necessity Statement*: Admission over 2 midnights anticipated for assessment of management of decompensated liver cirrhosis, SBP, severe sepsis, UTI, RANI on CKD, colitis, additional comorbidities as above. Diagnoses SBP (spontaneous bacterial peritonitis) K65.2 Decompensation of cirrhosis of liver K72.90; K74.60 UTI (urinary tract infection) N39.0 Enterocolitis K52.9 Acute kidney injury superimposed on CKD N17.9; N18.9
[2024-09-20 11:23] LABS: Cyto Order Verification No Order
[2024-09-20 11:24] LABS: Appearance, Peritoneal Fluid Turbid (Clear); Color, Peritoneal Fluid Yellow (Pale Yellow)
[2024-09-20 11:26] LABS: Pathology Referral Yes
[2024-09-20 11:30] LABS: Mononuclear #, Pertinoneal Fl 0.635 10^3/uL; Polynuclear # Cells, Perit 5.763 10^3/uL; RBC Pertioneal Fluid 3 10^3/uL; WBC Peritoneal Fluid 6398 /uL
[2024-09-20 12:07] LABS: Lactic Acid level (Lactate) 6.5 mmol/L (0.5-2.2)
[2024-09-20] MEDS: midodrine 5 mg TABLET PO ×2 (14:54→20:14)
--- NOTE | 2024-09-20 16:44 | PC.NURSE ---
bp 88/52, dr. Fair gave t.o. for levophed
[2024-09-20] MEDS: norepinephrine 4 MG/250 ML BAG 7.5 MG IV (17:09)
[2024-09-21] VITALS (72 sets, daily range): BP systolic 88–128; BP diastolic 59–88; PULSE 72–101; RESP 8–24; TEMP 36.4–36.9; O2SAT 90–100
[2024-09-21 04:15] LABS: Basophils % 0.2 %; Eosinophils % 0.2 %; Hematocrit 31.7 % (37-53); Lymphocytes # 1.1 10^3/uL (0.8-4.8); Lymphocytes % 8.6 %; Mean Corpuscular HGB Conc 34.1 g/dL (30-55); Mean Corpuscular Volume 96.9 fl (82-101); Mean Platelet Volume 11.5 fL (7.4-10.4); Monocytes # 0.8 10^3/uL (0.2-0.9); Monocytes % 6.6 %; Neutrophils # 10.34 10^3/uL (1.8-7.7); Neutrophils % 82.9 %; Nucleated Red Blood Cells % 0 %; Platelet Count 44 10^3/cmm (157-399); Red Blood Count 3.27 10^6/uL (3.85-5.65); Red Cell Distribution Width 14.9 % (12.1-15.1); White Blood Count 12.47 10^3/uL (3.29-11.43)
[2024-09-21 04:37] LABS: Alanine Aminotransferase 13 U/L (0-41); Alkaline Phosphatase 66 U/L (40-130); Anion Gap 13.2 (5-19); Aspartate Amino Transferase 26 U/L (0-40); Blood Urea Nitrogen 26 mg/dL (6-20); Calcium 8.3 mg/dL (8.5-10.5); Carbon Dioxide 27 mmol/L (22-29); Chloride 99 mmol/L (98-107); Creatinine Clr Calc Pharmacy 50.0424; Globulin 2.9 g/dL (1.3-4.6); Glomerular Filtration Rate 39.8 mL/min (90-130); Glucose 94 mg/dL (65-115); Osmolality Calculated 287 mOsm/kg (285-295); Potassium 3.2 mmol/L (3.5-5.1); Sodium 136 mmol/L (136-145); Total Bilirubin 2.8 mg/dL (0.15-1.2); Total Protein 5.9 g/dL (6.6-8.7)
[2024-09-21 05:12] LABS: Slide Review Slide Review Perform
[2024-09-21 05:24] LABS: INR 3.09 (0.8-1.2)
[2024-09-21] MEDS: cefTRIAXone 1,000 mg SDV 1000 MG IVP (06:16)
[2024-09-21] MEDS: potassium chloride ER 20 mEq Tablet PO (08:36)
[2024-09-21] MEDS: midodrine 5 mg TABLET PO ×3 (08:36→20:41)
[2024-09-21] MEDS: pantoprazole DR 40 mg Tablet PO (08:36)
[2024-09-21] MEDS: acetaminophen 325 mg Tablet 650 MG PO (08:37)
--- NOTE | 2024-09-21 09:34 | P.PN_ITS ---
Subjective 2 Subjective: He feels somewhat better. Denies additional new symptoms. She urinated a large amount last night. Denies difficulty with urination. Vitals/I&O/Wt Last Vital Signs Temp 97.5 F L 09/21/24 04:00 Pulse 85 09/21/24 08:45 Resp 12 09/21/24 08:45 BP 120/82 09/21/24 08:45 Pulse Ox 100 09/21/24 08:45 O2 Del Method Nasal Cannula 09/21/24 06:00 O2 Flow Rate 2 09/21/24 06:00 09/20/24 09/21/24 09/21/24 22:59 06:59 14:59 Intake Total 379.375 / 1429.375 158.375 / 1587.750 360 / 360 Output Total 400 / 6400 300 / 6700 Balance -20.625 / -4970.625 -141.625 / -5112.250 360 / 360 Weight last 48 hrs Weight 71 kg Weight 71 kg Weight 81.647 kg Weight 81.647 kg Physical Exam 2 Const: COMMON NORMALS: patient oriented x3 and alert GENERAL APPEARANCE: c ooperative ORIENTATION/CONSCIOUSNESS: Yes awake OTHER: Chronically ill-appearing. Mild jaundice. HENMT: COMMON NORMALS: oropharynx normal Neck/C-Spine: COMMON NORMALS: no JVD Resp: COMMON NORMALS: normal respiratory effort and clear to auscultation bilaterally AUSCULTATION: clear to auscultation bilaterally Cardio: COMMON NORMALS: no JVD, regular rhythm, S1 normal heart sound present, S2 normal heart sound present and No murmurs present (Cardio) RHYTHM: regular rhythm HEART SOUNDS: S1 normal heart sound present and S2 normal heart sound present GI: COMMON NORMALS: Soft to palpation INSPECTION: Yes abdominal distension (Minimal) PALPATION: Yes Soft to palpation and Yes Tenderness to palpation present (GI) (mod gen tend) Extremity: COMMON NORMALS: no joint enlargement and no pedal edema Neuro: COMMON NORMALS: patient oriented x3 and moves all extremities S ENSORIUM/ORIENTATION: Yes alert Skin: COMMON NORMALS: no rashes or lesions noted GENERAL SKIN EXAM: no rashes or lesions noted Data 09/21/24 03:14 09/21/24 03:14 Micro: Microbiology 09/20/24 06:37 Urine Culture - Preliminary Urine Catheterized 09/20/24 06:21 Blood Culture - Preliminary Blood NEGATIVE TO DATE 09/20/24 06:18 Blood Culture - Preliminary Blood NEGATIVE TO DATE 09/20/24 09:45 Gram Stain - Final Ascites Fluid A&P Assessment and plan (1) SBP (spontaneous bacterial peritonitis): Reviewed vitals, CBC, afebrile, with noted decrease in leukocytosis to 12.47. Reviewed peritoneal fluid culture, noted neutrophils, no bacteria on Gram stain so far. Follow-up culture results. Reviewed blood culture, so far negative. Continue empiric antibiotic coverage with ceftriaxone. Follow-up cultures, reassess blood counts. Reassess chemistry. (2) Decompensation of cirrhosis of liver: Reviewed INR, with further elevation up to 3. T. bili with some improvement to 2.8. Alk phos normal. AST and ALT normal. Platelets with some further worsening to 44. Hemoglobin down to 10.8. He is awake and alert. Status post paracentesis of about 6 L. Will reassess blood counts, chemistry, INR. With possible hepatorenal syndrome, received albumin, started on low rate Levophed. With some improvement in renal function today, BUN 26, creatinine down to 1.8. (3) UTI (urinary tract infection): Continue empiric antibiotic treatment with ceftriaxone. Follow-up urine culture. So far without growth in urine. (4) Enterocolitis: Without diarrhea. Incidentally noted on CT, has had nausea and vomiting, although no diarrhea. Could be reactive due to ascites and SBP. In case of diarrhea we will collect samples. (5) Acute kidney injury superimposed on CKD: Reviewed BUN, creatinine, potassium, bicarb, anion gap, showing improvement in renal function. Monitor urine output. Yesterday states he urinated quite a bit. Denies difficulty urinating. Possible hepatorenal syndrome, blood pressure soft yesterday, started on Levophed, received albumin. Reassess renal function. Blood pressure showing gradual improvement. Weaning down to 2 mcg/min on Levophed. Continue to titrate depending on pressures. Monitor intake and output. Reassess renal parameters. On review of CT without obstructive uropathy. Question of possible renal mass in the past. Not visualized on CT, although studies noncontrast. Discussed with the patient and his family will see if we can request records from [facility] in [place] where he says he followed with regards to the possible kidney lesions. Plan Urinary bladder wall thickening: With hematuria, history of smoking, follow-up with urology after discharge. Emphysema: Incidentally noted on CT. Uses inhaler as needed at home Current kidney disease Liver cirrhosis: Is being referred for placement of transplant list. Last EtOH over 4.5 months ago. Reportedly had been following with hepatology in [place]. Does not seem to have had EGD in the past. Resume follow-up with surgery, hepatology after discharge. Consideration may be given to nonselective beta-sneha. 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 PDMP PDMP Reviewed: Not Reviewed Attestations 2 Medical Necessity Statement*: Continue admission for assessment management of SBP, UTI, enterocolitis, RANI on CKD in gentleman with underlying liver cirrhosis. Coding Level of Care Code Critical Care >/= 30 minutes Critical care time (in minutes): 35 The high probability of a clinically significant, sudden or life threatening deterioration, as referenced in this documentation, required my full and direct attention, intervention and personal management. The critical care time shown is in addition to time spent performing any reported separately billable procedures and includes the following: [x] Data and vital sign review and interpretation [x ] Patient assessment, examination and intervention [x] Medication orders and management [x] Patient/Family updates as able [x] Care Coordination and Documentation. Diagnoses SBP (spontaneous bacterial peritonitis) K65.2 Decompensation of cirrhosis of liver K72.90; K74.60 UTI (urinary tract infection) N39.0 Enterocolitis K52.9 Acute kidney injury superimposed on CKD N17.9; N18.9
[2024-09-21] MEDS: morphine 4 mg/mL SDV 1 mL IVP ×3 (10:39→23:50)
[2024-09-22] VITALS (9 sets, daily range): BP systolic 98–107; BP diastolic 53–77; PULSE 86–102; RESP 16–18; TEMP 36.7–37; O2SAT 92–95
[2024-09-22 05:40] LABS: Basophils % 0.3 %; Eosinophils # 0.1 10^3/uL (0.0-0.8); Eosinophils % 1.7 %; Hematocrit 29.6 % (37-53); Lymphocytes # 1.3 10^3/uL (0.8-4.8); Lymphocytes % 16.9 %; Mean Corpuscular HGB Conc 33.8 g/dL (30-55); Mean Corpuscular Hemoglobin 32.2 pg (27-33); Mean Corpuscular Volume 95.2 fl (82-101); Mean Platelet Volume 12.1 fL (7.4-10.4); Monocytes # 0.8 10^3/uL (0.2-0.9); Monocytes % 9.7 %; Neutrophils # 5.47 10^3/uL (1.8-7.7); Neutrophils % 70.4 %; Nucleated Red Blood Cells % 0 %; Platelet Count 41 10^3/cmm (157-399); Red Blood Count 3.11 10^6/uL (3.85-5.65); Red Cell Distribution Width 14.9 % (12.1-15.1); White Blood Count 7.76 10^3/uL (3.29-11.43)
[2024-09-22 05:57] LABS: Alanine Aminotransferase 13 U/L (0-41); Albumin Level 2.7 g/dL (3.5-5.2); Alkaline Phosphatase 68 U/L (40-130); Anion Gap 11.3 (5-19); Aspartate Amino Transferase 27 U/L (0-40); Blood Urea Nitrogen 25 mg/dL (6-20); Calcium 8.2 mg/dL (8.5-10.5); Carbon Dioxide 27 mmol/L (22-29); Chloride 98 mmol/L (98-107); Creatinine Clr Calc Pharmacy 53.0444; Globulin 2.6 g/dL (1.3-4.6); Glomerular Filtration Rate 45.6 mL/min (90-130); Glucose 109 mg/dL (65-115); Osmolality Calculated 281 mOsm/kg (285-295); Potassium 3.3 mmol/L (3.5-5.1); Sodium 133 mmol/L (136-145); Total Bilirubin 2.3 mg/dL (0.15-1.2); Total Protein 5.3 g/dL (6.6-8.7)
[2024-09-22] MEDS: morphine 4 mg/mL SDV 1 mL IVP ×2 (06:33→11:29)
[2024-09-22] MEDS: cefTRIAXone 1,000 mg SDV 1000 MG IVP (06:34)
[2024-09-22] MEDS: potassium chloride ER 20 mEq Tablet PO (08:37)
[2024-09-22] MEDS: midodrine 5 mg TABLET PO ×3 (08:38→19:38)
[2024-09-22] MEDS: pantoprazole DR 40 mg Tablet PO (08:38)
--- NOTE | 2024-09-22 08:56 | P.PN_ITS ---
Subjective 2 Subjective: Abdominal distention is returning. He otherwise is feeling better. Still intermittent abdominal pain requiring pain medication. Tolerating oral intake. Generally feels he is improving. He is intent on pursuing arrangements for getting onto liver transplant list. Vitals/I&O/Wt Last Vital Signs Temp 98.0 F 09/22/24 08:00 Pulse 90 09/22/24 08:17 Resp 16 09/22/24 08:17 BP 107/77 09/22/24 08:00 Pulse Ox 92 09/22/24 08:17 O2 Del Method Nasal Cannula 09/22/24 08:17 O2 Flow Rate 1.5 09/22/24 08:17 09/21/24 09/22/24 09/22/24 22:59 06:59 14:59 Intake Total 1480 / 2377.5 400 / 2777.5 Output Total 400 / 400 Balance 1080 / 1977.5 400 / 2377.5 Weight last 48 hrs Weight 71.758 kg Weight 71 kg Weight 71 kg Physical Exam 2 Const: COMMON NORMALS: patient oriented x3 and alert GENERAL APPEARANCE: c ooperative ORIENTATION/CONSCIOUSNESS: Yes awake OTHER: Chronically ill-appearing. Mild jaundice. HENMT: COMMON NORMALS: oropharynx normal Neck/C-Spine: COMMON NORMALS: no JVD Resp: COMMON NORMALS: normal respiratory effort and clear to auscultation bilaterally AUSCULTATION: clear to auscultation bilaterally Cardio: COMMON NORMALS: no JVD, regular rhythm, S1 normal heart sound present, S2 normal heart sound present and No murmurs present (Cardio) RHYTHM: regular rhythm HEART SOUNDS: S1 normal heart sound present and S2 normal heart sound present GI: COMMON NORMALS: Soft to palpation INSPECTION: Yes abdominal distension (Minimal) PALPATION: Yes Soft to palpation and Yes Tenderness to palpation present (GI) (mod gen tend) Extremity: COMMON NORMALS: no joint enlargement and no pedal edema Neuro: COMMON NORMALS: patient oriented x3 and moves all extremities S ENSORIUM/ORIENTATION: Yes alert Skin: COMMON NORMALS: no rashes or lesions noted GENERAL SKIN EXAM: no rashes or lesions noted Data 09/22/24 04:25 09/22/24 04:25 Micro: Microbiology 09/20/24 09:45 Gram Stain - Final Ascites Fluid Body Fluid Culture - Preliminary 09/20/24 06:37 Urine Culture - Preliminary Urine Catheterized 09/20/24 06:21 Blood Culture - Preliminary Blood NEGATIVE TO DATE 09/20/24 06:18 Blood Culture - Preliminary Blood NEGATIVE TO DATE A&P Assessment and plan (1) SBP (spontaneous bacterial peritonitis): Reviewed vitals, CBC, afebrile, with noted decrease in leukocytosis to normal. Reviewed peritoneal fluid culture, noted neutrophils, no bacteria on Gram stain so far. Discussed with him. Follow-up culture results. Reviewed blood culture, so far negative. Continue empiric antibiotic coverage with ceftriaxone. Follow-up cultures, reassess blood counts. Reassess chemistry. (2) Decompensation of cirrhosis of liver: Ascites appears to be reaccumulating. Discussed with him starting diuretic with spironolactone, Lasix. Added, monitor for worsening electrolyte abnormality, RANI. He wants to continue to pursue getting onto the liver transplant place. Discussed with nursing, high risk case manager. Reviewed INR, with further elevation up to 3. T. bili with some improvement to 2.8. Alk phos normal. AST and ALT normal. Platelets with some further worsening to 44. Hemoglobin down to 10.8. He is awake and alert. Status post paracentesis of about 6 L. Will reassess blood counts, chemistry, INR. With possible hepatorenal syndrome, received albumin, started on low rate Levophed. With some improvement in renal function today, BUN 26, creatinine down to 1.8. (3) UTI (urinary tract infection): Reviewed urine culture, so far without growth. Continue empiric antibiotic treatment with ceftriaxone. (4) Enterocolitis: Without diarrhea. Incidentally noted on CT, has had nausea and vomiting, although no diarrhea. Could be reactive due to ascites and SBP. In case of diarrhea we will collect samples. (5) Acute kidney injury superimposed on CKD: Creatinine with improvement down to 1.6. Reviewed BUN, potassium, give replacement for mild hypokalemia. Monitor urine output. Yesterday states he urinated quite a bit. Denies difficulty urinating. Possible hepatorenal syndrome, blood pressure soft yesterday, started on Levophed, received albumin. Reassess renal function. Blood pressure showing gradual improvement. Weaning down to 2 mcg/min on Levophed. Continue to titrate depending on pressures. Monitor intake and output. Reassess renal parameters. On review of CT without obstructive uropathy. Question of possible renal mass in the past. Not visualized on CT, although studies noncontrast. Discussed with the patient and his family will see if we can request records from [facility] in [place] where he says he followed with regards to the possible kidney lesions. Plan Urinary bladder wall thickening: With hematuria, history of smoking, follow-up with urology after discharge. Emphysema: Incidentally noted on CT. Uses inhaler as needed at home Current kidney disease Liver cirrhosis: Is being referred for placement of transplant list. Last EtOH over 4.5 months ago. Reportedly had been following with hepatology in [place]. Does not seem to have had EGD in the past. Resume follow-up with surgery, hepatology after discharge. Consideration may be given to nonselective beta-sneha. 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 PDMP PDMP Reviewed: Not Reviewed Attestations 2 Medical Necessity Statement*: Continue admission for assessment management of decompensated liver cirrhosis, SBP, UTI, enterocolitis, RANI on CKD in gentleman with underlying liver cirrhosis. and High MDM includes amount and/or complexity of data reviewed/ordered [ resulted lab(s)/test(s) and other healthcare professional discussion] and described risk of complication, morbidity or mortality of management as documented Diagnoses SBP (spontaneous bacterial peritonitis) K65.2 Decompensation of cirrhosis of liver K72.90; K74.60 UTI (urinary tract infection) N39.0 Enterocolitis K52.9 Acute kidney injury superimposed on CKD N17.9; N18.9
[2024-09-22] MEDS: FUROsemide 20 mg Tablet PO (11:29)
[2024-09-22] MEDS: spironolactone 25 mg Tablet PO ×2 (11:29→17:38)
[2024-09-22] MEDS: acetaminophen 325 mg Tablet 650 MG PO (19:38)
[2024-09-23] VITALS (8 sets, daily range): BP systolic 90–102; BP diastolic 53–69; PULSE 76–97; RESP 12–18; TEMP 36.6–37; O2SAT 90–96; BMI 24.0
[2024-09-23] MEDS: morphine 4 mg/mL SDV 1 mL IVP (04:21)
[2024-09-23 05:31] LABS: Basophils % 0.4 %; Eosinophils # 0.1 10^3/uL (0.0-0.8); Eosinophils % 1.1 %; Hematocrit 29.1 % (37-53); Lymphocytes # 1.5 10^3/uL (0.8-4.8); Lymphocytes % 18.9 %; Mean Corpuscular HGB Conc 34.4 g/dL (30-55); Mean Corpuscular Hemoglobin 33.1 pg (27-33); Mean Corpuscular Volume 96.4 fl (82-101); Mean Platelet Volume 11.8 fL (7.4-10.4); Monocytes # 1.2 10^3/uL (0.2-0.9); Monocytes % 15.6 %; Neutrophils # 5.01 10^3/uL (1.8-7.7); Neutrophils % 63.6 %; Nucleated Red Blood Cells % 0 %; Platelet Count 46 10^3/cmm (157-399); Red Blood Count 3.02 10^6/uL (3.85-5.65); Red Cell Distribution Width 14.8 % (12.1-15.1); White Blood Count 7.88 10^3/uL (3.29-11.43)
[2024-09-23 05:48] LABS: Alanine Aminotransferase 14 U/L (0-41); Albumin Level 2.7 g/dL (3.5-5.2); Alkaline Phosphatase 73 U/L (40-130); Anion Gap 11.4 (5-19); Aspartate Amino Transferase 31 U/L (0-40); Blood Urea Nitrogen 29 mg/dL (6-20); Calcium 8.1 mg/dL (8.5-10.5); Carbon Dioxide 26 mmol/L (22-29); Chloride 96 mmol/L (98-107); Globulin 2.6 g/dL (1.3-4.6); Glomerular Filtration Rate 37.4 mL/min (90-130); Glucose 122 mg/dL (65-115); Osmolality Calculated 277 mOsm/kg (285-295); Potassium 3.4 mmol/L (3.5-5.1); Sodium 130 mmol/L (136-145); Total Bilirubin 3.1 mg/dL (0.15-1.2); Total Protein 5.3 g/dL (6.6-8.7)
[2024-09-23] MEDS: cefTRIAXone 1,000 mg SDV 1000 MG IVP (06:16)
[2024-09-23] MEDS: spironolactone 25 mg Tablet PO ×2 (09:09→18:20)
[2024-09-23] MEDS: FUROsemide 20 mg Tablet PO (09:09)
[2024-09-23] MEDS: midodrine 5 mg TABLET PO ×3 (09:09→21:04)
[2024-09-23] MEDS: pantoprazole DR 40 mg Tablet PO (09:09)
--- NOTE | 2024-09-23 10:43 | P.PN_ITS ---
Subjective 2 Subjective: Not feeling quite well today. Having nausea, poor appetite. Still abdominal distention with some worsening. Vitals/I&O/Wt Last Vital Signs Temp 98.2 F 09/23/24 07:58 Pulse 86 09/23/24 07:58 Resp 16 09/23/24 07:58 BP 90/53 09/23/24 07:58 Pulse Ox 90 09/23/24 07:58 O2 Del Method Room Air 09/23/24 07:58 O2 Flow Rate 1.5 09/22/24 08:17 09/22/24 09/23/24 09/23/24 22:59 06:59 14:59 Intake Total 60 / 360 180 / 180 Balance 60 / 360 180 / 180 Weight last 48 hrs Weight 71.668 kg Weight 71.758 kg Physical Exam 2 Narrative: Accompanied by his 1 brother in the morning, and second brother in the afternoon. Const: COMMON NORMALS: patient oriented x3 and alert GENERAL APPEARANCE: c ooperative ORIENTATION/CONSCIOUSNESS: Yes awake OTHER: Chronically ill-appearing. Mild jaundice. HENMT: COMMON NORMALS: oropharynx normal Neck/C-Spine: COMMON NORMALS: no JVD Resp: COMMON NORMALS: normal respiratory effort and clear to auscultation bilaterally AUSCULTATION: clear to auscultation bilaterally Cardio: COMMON NORMALS: no JVD, regular rhythm, S1 normal heart sound present, S2 normal heart sound present and No murmurs present (Cardio) RHYTHM: regular rhythm HEART SOUNDS: S1 normal heart sound present and S2 normal heart sound present GI: COMMON NORMALS: Soft to palpation INSPECTION: Yes abdominal distension (Some increase to moderate distention.) PALPATION: Yes Soft to palpation and Yes Tenderness to palpation present (GI) (mod gen tend) Extremity: COMMON NORMALS: no joint enlargement and no pedal edema Neuro: COMMON NORMALS: patient oriented x3 and moves all extremities S ENSORIUM/ORIENTATION: Yes alert Skin: COMMON NORMALS: no rashes or lesions noted GENERAL SKIN EXAM: no rashes or lesions noted Data 09/23/24 04:26 09/23/24 04:26 Micro: Microbiology 09/20/24 09:45 Gram Stain - Final Ascites Fluid Body Fluid Culture - Preliminary 09/20/24 06:37 Urine Culture - Final Urine Catheterized A&P Assessment and plan (1) Decompensation of cirrhosis of liver: Urine output is not documented. Weight is steady, although is showing some increase in ascites with some mild to moderate distention. Soft blood pressures, not much room to increase pressures at this time. Continue diuresis as discussed with him, monitor pressures, with risk of hypotension, kidney injury, reassess renal function. Continue spironolactone, Lasix. MELD score 32. As per discussion with him discussed also with hepatology/transplant specialist at [facility]. Not a candidate for TIPS at this time. At the moment not a candidate for transplantation, but needs further assessment, recommending obtaining TTE, requested. Will need also to set up with hepatology to follow-up with his outpatient. His insurance was checked and [facility] is not in his network, recommendation to patient and family to call insurance to find out which hospital system does perform transplant he is within his insurance benefits and let us know. Please refer him to hepatology in the network once they are able to obtain this information. She will also need close follow-up with primary provider. Continue to optimize diuretic regimen, try to stable for ascites to allow for possibly weekly or longer paracentesis to allow discharge home. Discussed with nursing, family preservation caseworker. Brother reports concern for prior SBP, possibly peritonitis due to paracentesis versus recurrent SBP. Recheck INR. Alk phos normal. AST and ALT normal. Platelets with some further worsening to 44. Hemoglobin down to 10.8. He is awake and alert. Status post paracentesis of about 6 L. Will reassess blood counts, chemistry, INR. With possible hepatorenal syndrome, received albumin, started on low rate Levophed. With some improvement in renal function today, BUN 26, creatinine down to 1.8. (2) SBP (spontaneous bacterial peritonitis): Continue ceftriaxone. Reviewed fluid culture, blood culture, so far remaining negative. Brother reports concern for prior SBP, possibly peritonitis due to paracentesis versus recurrent SBP. (3) UTI (urinary tract infection): Reviewed urine culture, so far without growth. Continue empiric antibiotic treatment with ceftriaxone. (4) Enterocolitis: Without diarrhea. Incidentally noted on CT, has had nausea and vomiting, although no diarrhea. Could be reactive due to ascites and SBP. In case of diarrhea we will collect samples. (5) Acute kidney injury superimposed on CKD: Creatinine overall with improvement from admission slight worsening today at 1.9. He is receiving diuresis with spironolactone, Lasix, reassess renal function. Reassess blood pressure, blood sugar has been soft, although not hypotensive. Increase midodrine to 10 mg twice daily. Possible hepatorenal syndrome, blood pressure soft yesterday, started on Levophed, received albumin. Reassess renal function. Blood pressure showing gradual improvement. Weaning down to 2 mcg/min on Levophed. Continue to titrate depending on pressures. Monitor intake and output. Reassess renal parameters. On review of CT without obstructive uropathy. Question of possible renal mass in the past. Not visualized on CT, although studies noncontrast. Discussed with the patient and his family will see if we can request records from [facility] in [place] where he says he followed with regards to the possible kidney lesions. Plan Urinary bladder wall thickening: With hematuria, history of smoking, follow-up with urology after discharge. Emphysema: Incidentally noted on CT. Uses inhaler as needed at home Current kidney disease Liver cirrhosis: Is being referred for placement of transplant list. Last EtOH over 4.5 months ago. Reportedly had been following with hepatology in [place]. Does not seem to have had EGD in the past. Resume follow-up with surgery, hepatology after discharge. Consideration may be given to nonselective beta-sneha. 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 PDMP PDMP Reviewed: Not Reviewed Attestations 2 Medical Necessity Statement*: Continue admission for assessment management of decompensated liver cirrhosis, SBP, UTI, enterocolitis, RANI on CKD in gentleman with underlying liver cirrhosis. and High MDM includes amount and/or complexity of data reviewed/ordered [ resulted lab(s)/test(s), ordered lab(s)/test(s) and other healthcare professional discussion] and described risk of complication, morbidity or mortality of management as documented Diagnoses Decompensation of cirrhosis of liver K72.90; K74.60 SBP (spontaneous bacterial peritonitis) K65.2 UTI (urinary tract infection) N39.0 Enterocolitis K52.9 Acute kidney injury superimposed on CKD N17.9; N18.9
--- NOTE | 2024-09-23 13:37 | USCV_ITS ---
Aidan Elliott Age: 53 Gender: M : 1970 Exam Date: 09/23/2024 15:15 Ordering Phys: Adan Altamirano MD Technologist: CALE [place] [facility] [place]: BP: 102 / 62 HR: 71 Rhythm: Sinus Technical Quality: Adequate MEASUREMENTS (Male / Female) Normal Values 2D ECHO LV Diastolic Diameter PLAX 4.8 cm 4.2 - 5.9 / 3.9 - 5.3 cm IVS Diastolic Thickness 0.9 cm 0.6 - 1.0 / 0.6 - 0.9 cm IVS Systolic Thickness 1.3 cm LVPW Diastolic Thickness 1.0 cm 0.6 - 1.0 / 0.6 - 0.9 cm LVPW Systolic Thickness 1.8 cm LVOT Diameter 2.0 cm LV Ejection Fraction 2D Teich 62.3 % LV Ejection Fraction MOD 4C 48.6 % LV Ejection Fraction MOD 2C 62.0 % LV Ejection Fraction 2C AL 63.9 % LA Diameter 4.2 cm RA Systolic Volume 4C AL 25.9 ml RA Systolic Volume 4C MOD 24.0 ml LA Sys Volume AL 64.0 cm cubed LA Sys Volume Index AL 34.4 cm cubed/m squared Aorta at Sinotubular Diameter 3.5 cm M-MODE LA Ao Ratio MM 1.4 AV Cusp Separation MM 1.7 cm DOPPLER AV Peak Velocity 169.0 cm/s LVOT Peak Velocity 141.0 cm/s AV Area Cont Eq vti 3.5 cm squared AV Area Cont Eq pk 2.6 cm squared MV Peak Velocity 88.0 cm/s MV Area PHT 3.0 cm squared Mitral E to A Ratio 0.8 TR Peak Velocity 152.0 cm/s TR Peak Gradient 9.2 mmHg TV Peak E Velocity 101.0 cm/s PV Peak Velocity 111.0 cm/s FINDINGS Left Ventricle Normal left ventricular size and systolic function, EF 62%.no regional wall motion abnormalities. Grade I/IV diastolic dysfunction (abnormal relaxation filling pattern), normal to mildly elevated filling pressures. Right Ventricle The right ventricle is normal in size and function. Right Atrium The right atrium is normal in size. Left Atrium Mildly increased left atrial size. Mitral Valve Trace mitral valve regurgitation. Aortic Valve Thickened aortic valve. Tricuspid Valve No gross abnormalities noted Pulmonic Valve No gross abnormalities noted Pericardium Normal pericardium without effusion. Aorta Normal aortic annulus size. IVC Inferior vena cava not visualized. CONCLUSIONS Normal left ventricular size and systolic function, EF 62%.no regional wall motion abnormalities. Grade I/IV diastolic dysfunction (abnormal relaxation filling pattern), normal to mildly elevated filling pressures. Mildly increased left atrial size. Thickened aortic valve. Trace mitral valve regurgitation. There is no pericardial effusion. There are no intracardiac masses. No similar previous studies are available for comparison Dr Christie Norton MD [facility] (Electronically Signed) Final Date: 23 September 2024 19:03 S
[2024-09-23] MEDS: potassium chloride ER 20 mEq Tablet PO (23:55)
[2024-09-23] MEDS: lactulose oral liq 20 gm/30 mL UDC PO (23:55)
[2024-09-24] VITALS (7 sets, daily range): BP systolic 85–117; BP diastolic 48–74; PULSE 76–94; RESP 14–18; TEMP 36.7–37.1; O2SAT 92–96
[2024-09-24 03:58] LABS: Basophils % 0.4 %; Eosinophils # 0.1 10^3/uL (0.0-0.8); Hematocrit 32.1 % (37-53); Lymphocytes # 1.5 10^3/uL (0.8-4.8); Lymphocytes % 17.5 %; Mean Corpuscular HGB Conc 34.6 g/dL (30-55); Mean Corpuscular Hemoglobin 32.4 pg (27-33); Mean Corpuscular Volume 93.6 fl (82-101); Mean Platelet Volume 11.2 fL (7.4-10.4); Monocytes # 1.4 10^3/uL (0.2-0.9); Neutrophils # 5.24 10^3/uL (1.8-7.7); Neutrophils % 63.3 %; Nucleated Red Blood Cells % 0 %; Platelet Count 60 10^3/cmm (157-399); Red Blood Count 3.43 10^6/uL (3.85-5.65); Red Cell Distribution Width 14.7 % (12.1-15.1); White Blood Count 8.28 10^3/uL (3.29-11.43)
[2024-09-24 04:17] LABS: Alanine Aminotransferase 16 U/L (0-41); Albumin Level 2.7 g/dL (3.5-5.2); Alkaline Phosphatase 77 U/L (40-130); Anion Gap 11.7 (5-19); Aspartate Amino Transferase 37 U/L (0-40); Blood Urea Nitrogen 28 mg/dL (6-20); Calcium 8.5 mg/dL (8.5-10.5); Carbon Dioxide 26 mmol/L (22-29); Chloride 97 mmol/L (98-107); Globulin 3.1 g/dL (1.3-4.6); Glomerular Filtration Rate 39.8 mL/min (90-130); Glucose 112 mg/dL (65-115); Osmolality Calculated 278 mOsm/kg (285-295); Potassium 3.7 mmol/L (3.5-5.1); Sodium 131 mmol/L (136-145); Total Bilirubin 3.6 mg/dL (0.15-1.2); Total Protein 5.8 g/dL (6.6-8.7)
[2024-09-24] MEDS: cefTRIAXone 1,000 mg SDV 1000 MG IVP (05:57)
[2024-09-24] MEDS: midodrine 5 mg TABLET 10 MG PO ×3 (05:58→18:07)
[2024-09-24] MEDS: lactulose oral liq 20 gm/30 mL UDC PO ×4 (05:58→21:35)
[2024-09-24] MEDS: pantoprazole DR 40 mg Tablet PO (09:46)
[2024-09-24] MEDS: spironolactone 25 mg Tablet PO ×2 (09:46→18:07)
[2024-09-24] MEDS: FUROsemide 20 mg Tablet PO (09:46)
--- NOTE | 2024-09-24 10:00 | P.PN_ITS ---
Subjective 2 Subjective: Patient reports ongoing nausea, abdominal pain and weakness. Discussed cultures remain negative. Continues with antibiotics. Endorses generalized weakness. Discussed medically he is improving. Renal function seems to be at recent baseline. Discussed discharge planning, he states he lives alone. States he is far too weak to consider discharge today. He is agreeable to ambulation today in anticipation of discharge planning. Medications: Reviewed: Yes Vitals/I&O/Wt Last Vital Signs Temp 98.5 F 09/24/24 07:25 Pulse 90 09/24/24 07:25 Resp 16 09/24/24 07:25 BP 99/68 09/24/24 07:25 Pulse Ox 95 09/24/24 07:25 O2 Del Method Room Air 09/24/24 07:25 O2 Flow Rate 2 09/23/24 10:00 09/23/24 09/24/24 09/24/24 22:59 06:59 14:59 Intake Total 300 / 960 Balance 300 / 960 Weight last 48 hrs Weight 74.389 kg Weight 71.668 kg Physical Exam 2 Narrative: General: Patient is awake. Chronically ill-appearing. Head: Normocephalic. Atraumatic. EOM intact. Neck: No JVD. Cardiovascular: RRR. No gallops. No murmurs. Lungs: Clear to auscultation, no use of accessory muscles, no crackles or wheezes. Skin: No jaundice. No rashes. Abdomen: Abdomen distended. Slightly TTP. Bowel sounds present. Extremities: No cyanosis or clubbing. Musculoskeletal: No swollen or erythematous joints. Neurological: No myoclonus. Data 09/24/24 03:33 09/24/24 03:33 Micro: Microbiology 09/20/24 09:45 Gram Stain - Final Ascites Fluid Body Fluid Culture - Final A&P Assessment and plan (1) Decompensation of cirrhosis of liver: Acute decompensated liver cirrhosis with ascites Continue oral Lasix/Aldactone as hemodynamics allow Continue midodrine support Patient's been referred to hepatology as outpatient (2) SBP (spontaneous bacterial peritonitis): Follow cultures, currently negative Continue ceftriaxone (3) UTI (urinary tract infection): Cultures remain negative Continue antibiotics (4) Enterocolitis: Patient's persistently nauseous, suspect secondary to underlying liver cirrhosis and ascites complicated by SBP Antiemetics as needed (5) Acute kidney injury superimposed on CKD: Renal function not recent baseline Daily assessment of volume Plan Urinary bladder wall thickening: Outpatient follow-up. Emphysema: Breathing treatments as needed Debility and physical deconditioning: Patient does not feel safe to go home today. Is agreeable to get out of bed to chair and see his functional status. Will request therapy evaluation. PDMP PDMP Reviewed: Not Reviewed Attestations 2 Medical Necessity Statement*: Patient requires ongoing hospitalization for IV antibiotics, supportive care, and therapy eval. Coding Level of Care Code Acute Code for g Fwd Diagnoses Decompensation of cirrhosis of liver K72.90; K74.60 SBP (spontaneous bacterial peritonitis) K65.2 UTI (urinary tract infection) N39.0 Enterocolitis K52.9 Acute kidney injury superimposed on CKD N17.9; N18.9
[2024-09-24] MEDS: oxyCODONE 5 mg IR Tab/Cap 2.5 MG PO (19:52)
[2024-09-25] VITALS (11 sets, daily range): BP systolic 100–113; BP diastolic 54–77; PULSE 73–90; RESP 15–18; TEMP 36.7–37.3; O2SAT 92–95
[2024-09-25] MEDS: lactulose oral liq 20 gm/30 mL UDC PO ×3 (04:13→15:20)
[2024-09-25 04:38] LABS: Alanine Aminotransferase 17 U/L (0-41); Albumin Level 2.7 g/dL (3.5-5.2); Alkaline Phosphatase 83 U/L (40-130); Anion Gap 14.6 (5-19); Aspartate Amino Transferase 37 U/L (0-40); Blood Urea Nitrogen 29 mg/dL (6-20); Calcium 8.5 mg/dL (8.5-10.5); Carbon Dioxide 24 mmol/L (22-29); Chloride 98 mmol/L (98-107); Creatinine Clr Calc Pharmacy 50.7032; Globulin 3.2 g/dL (1.3-4.6); Glomerular Filtration Rate 42.5 mL/min (90-130); Glucose 115 mg/dL (65-115); Osmolality Calculated 283 mOsm/kg (285-295); Potassium 3.6 mmol/L (3.5-5.1); Sodium 133 mmol/L (136-145); Total Bilirubin 5.1 mg/dL (0.15-1.2); Total Protein 5.9 g/dL (6.6-8.7)
[2024-09-25] MEDS: cefTRIAXone 1,000 mg SDV 1000 MG IVP (06:05)
[2024-09-25] MEDS: midodrine 5 mg TABLET 10 MG PO ×3 (06:05→21:10)
[2024-09-25] MEDS: oxyCODONE 5 mg IR Tab/Cap 2.5 MG PO ×3 (06:06→17:24)
[2024-09-25] MEDS: spironolactone 25 mg Tablet PO ×2 (07:44→17:18)
[2024-09-25] MEDS: FUROsemide 20 mg Tablet PO (07:45)
[2024-09-25] MEDS: pantoprazole DR 40 mg Tablet PO (07:46)
[2024-09-25] MEDS: ondansetron 2 mg/ML SDV 2 mL 4 MG IVP ×2 (07:52→17:18)
--- NOTE | 2024-09-25 09:03 | P.PN_ITS ---
Subjective 2 Subjective: Per reports, patient threw up all night long. This morning, he endorses continue nausea and vomiting. He is agreeable to return to liquid diet. Zofran administered, will monitor response. He endorses worsening abdominal distention; reports about the same as when he came in at this point. Reports strength overall is doing ok. Encouraged continued out of bed and ambulation as tolerated to preserve his strength. Discussed plan of care. Medications: Reviewed: Yes Vitals/I&O/Wt Last Vital Signs Temp 99.1 F 09/25/24 07:34 Pulse 83 09/25/24 07:34 Resp 15 09/25/24 07:34 BP 109/69 09/25/24 07:34 Pulse Ox 95 09/25/24 07:34 O2 Del Method Room Air 09/25/24 07:34 O2 Flow Rate 1 09/24/24 16:00 09/24/24 09/25/24 09/25/24 22:59 06:59 14:59 Intake Total 240 / 240 60 / 60 Balance 240 / 240 60 / 60 Weight last 48 hrs Weight 73.709 kg Weight 74.389 kg Physical Exam 2 Narrative: General: Patient is awake. Ill-appearing. Head: Normocephalic. Atraumatic. EOM intact. Dry mucous membranes. Neck: No JVD. Cardiovascular: RRR. No gallops. No murmurs. Lungs: Clear to auscultation, no use of accessory muscles, no crackles or wheezes. Skin: Diffuse jaundice. No rashes. Abdomen: Abdomen distended. TTP. Bowel sounds present. Extremities: No cyanosis or clubbing. Musculoskeletal: No swollen or erythematous joints. Neurological: No myoclonus. Data 09/24/24 03:33 09/25/24 04:00 Micro: Microbiology 09/20/24 06:21 Blood Culture - Final Blood NO GROWTH AFTER 5 DAYS 09/20/24 06:18 Blood Culture - Final Blood NO GROWTH AFTER 5 DAYS A&P Assessment and plan (1) Decompensation of cirrhosis of liver: Acute decompensated liver cirrhosis with ascites Continue oral Lasix/Aldactone as hemodynamics allow Continue midodrine support Patient's been referred to hepatology as outpatient (2) SBP (spontaneous bacterial peritonitis): Follow cultures Continue ceftriaxone May benefit from repeat paracentesis soon (3) UTI (urinary tract infection): Cultures remain negative Continue antibiotics (4) Enterocolitis: (5) Acute kidney injury superimposed on CKD: Renal function at recent baseline Daily assessment of volume Plan Intractable nausea/vomiting: Not responding to treatment as intended. Not safe for discharge. Revert back to liquid diet. Continue antiemetic, adjust if needed. Continued supportive care. No IV fluids due to already severely overloaded volume status. Urinary bladder wall thickening: Outpatient follow-up. Emphysema: Breathing treatments as needed Debility and physical deconditioning: Encourage OOB and ambulation. PDMP PDMP Reviewed: Not Reviewed Attestations 2 Medical Necessity Statement*: Patient requires ongoing hospitalization for IV antibiotics, IV antiemetic, treatment of intractable N/V, and supportive care. Coding Level of Care Code Acute Code for [facility] Fwd Diagnoses Decompensation of cirrhosis of liver K72.90; K74.60 SBP (spontaneous bacterial peritonitis) K65.2 UTI (urinary tract infection) N39.0 Enterocolitis K52.9 Acute kidney injury superimposed on CKD N17.9; N18.9
[2024-09-26] VITALS (8 sets, daily range): BP systolic 101–104; BP diastolic 65–69; PULSE 72–85; RESP 16–17; TEMP 36.6–37.1; O2SAT 93–96
[2024-09-26 04:41] LABS: Basophils % 0.5 %; Eosinophils # 0.2 10^3/uL (0.0-0.8); Eosinophils % 2.8 %; Lymphocytes # 1.5 10^3/uL (0.8-4.8); Lymphocytes % 24.1 %; Mean Corpuscular HGB Conc 34.8 g/dL (30-55); Mean Corpuscular Hemoglobin 32.4 pg (27-33); Mean Corpuscular Volume 93.1 fl (82-101); Mean Platelet Volume 11.2 fL (7.4-10.4); Monocytes # 1.1 10^3/uL (0.2-0.9); Monocytes % 16.4 %; Neutrophils # 3.52 10^3/uL (1.8-7.7); Neutrophils % 54.9 %; Nucleated Red Blood Cells % 0 %; Platelet Count 62 10^3/cmm (157-399); Red Blood Count 3.33 10^6/uL (3.85-5.65); Red Cell Distribution Width 14.9 % (12.1-15.1)
[2024-09-26 05:02] LABS: Alanine Aminotransferase 17 U/L (0-41); Albumin Level 2.8 g/dL (3.5-5.2); Alkaline Phosphatase 88 U/L (40-130); Anion Gap 15.4 (5-19); Aspartate Amino Transferase 35 U/L (0-40); Blood Urea Nitrogen 32 mg/dL (6-20); Calcium 8.5 mg/dL (8.5-10.5); Carbon Dioxide 23 mmol/L (22-29); Chloride 97 mmol/L (98-107); Creatinine Clr Calc Pharmacy 46.9523; Glomerular Filtration Rate 39.7 mL/min (90-130); Glucose 97 mg/dL (65-115); Magnesium 1.5 mg/dL (1.7-2.3); Osmolality Calculated 281 mOsm/kg (285-295); Phosphorus 2.6 mg/dL (2.5-4.5); Potassium 3.4 mmol/L (3.5-5.1); Sodium 132 mmol/L (136-145); Total Bilirubin 5.3 mg/dL (0.15-1.2); Total Protein 5.8 g/dL (6.6-8.7)
[2024-09-26] MEDS: cefTRIAXone 1,000 mg SDV 1000 MG IVP (06:22)
[2024-09-26] MEDS: midodrine 5 mg TABLET 10 MG PO ×3 (06:22→17:11)
[2024-09-26] MEDS: oxyCODONE 5 mg IR Tab/Cap 2.5 MG PO ×2 (06:34→22:05)
[2024-09-26] MEDS: ipratropium-albuterol 3 mL Neb INHALATION (08:50)
[2024-09-26] MEDS: FUROsemide 20 mg Tablet PO (08:50)
[2024-09-26] MEDS: magnesium sulfate premix 2 GM/50 ML PIGGYBACK IV (08:51)
[2024-09-26] MEDS: pantoprazole DR 40 mg Tablet PO (08:51)
[2024-09-26] MEDS: spironolactone 25 mg Tablet PO ×2 (08:51→17:11)
[2024-09-26] MEDS: lidocaine 1% 5 ML in potassium chloride premix 100 ML 52.5 ML IV (08:52)
[2024-09-26] MEDS: hyDROXYzine 25 mg Capsule PO ×2 (09:04→22:05)
--- NOTE | 2024-09-26 11:14 | P.PN_ITS ---
Subjective 2 Subjective: Patient reports he vomited the entire night. States he cannot hold anything down. Endorses generalized malaise and fatigue. Discussed repeat paracentesis prior to discharge. Expresses concern that this would drop him to the bottom of the transplant list. I discussed that he has not establish care with transplant center as I would not expect him to be on the list yet. Also paracentesis from my experience should not factor significantly in his transplant list placement. Discussed changing antiemetics and helps to control nausea or vomiting. Medications: Reviewed: Yes Vitals/I&O/Wt Last Vital Signs Temp 98.5 F 09/26/24 07:41 Pulse 73 09/26/24 08:51 Resp 16 09/26/24 08:51 BP 103/69 09/26/24 07:41 Pulse Ox 96 09/26/24 08:51 O2 Del Method Nasal Cannula 09/26/24 08:51 O2 Flow Rate 1 09/26/24 08:51 09/25/24 09/26/24 09/26/24 22:59 06:59 14:59 Intake Total 240 / 300 530 / 530 Output Total 300 / 300 Balance -300 / -240 240 / 0 530 / 530 Weight last 48 hrs Weight 72.257 kg Weight 73.709 kg Physical Exam 2 Narrative: General: Patient is awake. Ill-appearing. Laying in bed. Head: Normocephalic. Atraumatic. EOM intact. Neck: No JVD. Cardiovascular: RRR. No gallops. No murmurs. Lungs: Clear to auscultation, no use of accessory muscles, no crackles or wheezes. Skin: Diffuse jaundice. No rashes. Abdomen: Abdomen distended. Mildly tender to palpation. Bowel sounds present. Extremities: No cyanosis or clubbing. Musculoskeletal: No swollen or erythematous joints. Neurological: No myoclonus. Data 09/26/24 04:09 09/26/24 04:09 Micro: Microbiology 09/20/24 06:21 Blood Culture - Final Blood NO GROWTH AFTER 5 DAYS 09/20/24 06:18 Blood Culture - Final Blood NO GROWTH AFTER 5 DAYS A&P Assessment and plan (1) Decompensation of cirrhosis of liver: Acute decompensated liver cirrhosis with ascites Continue oral Lasix/Aldactone as hemodynamics allow Continue midodrine support Patient's been referred to hepatology as outpatient Discharge pending improvement in nausea and vomiting symptoms (2) SBP (spontaneous bacterial peritonitis): Follow cultures Continue ceftriaxone Will see if radiology is able to perform repeat paracentesis, tomorrow will be 1 week since his last (3) UTI (urinary tract infection): Cultures remain negative Continue antibiotics (4) Enterocolitis: (5) Acute kidney injury superimposed on CKD: Renal function at recent baseline Daily assessment of volume Plan Intractable nausea/vomiting: Not responding to treatment as intended. Not safe for discharge. Continue liquid diet. Trial of Compazine. His inability to tolerate oral intake is delaying his discharge. Urinary bladder wall thickening: Outpatient follow-up. Emphysema: Breathing treatments as needed Debility and physical deconditioning: Encourage OOB and ambulation. PDMP PDMP Reviewed: Not Reviewed Attestations 2 Medical Necessity Statement*: Patient requires ongoing hospitalization for IV antibiotics, IV antiemetic, treatment of intractable N/V, and supportive care. Coding Level of Care Code Acute Code for [facility] Diagnoses Decompensation of cirrhosis of liver K72.90; K74.60 SBP (spontaneous bacterial peritonitis) K65.2 UTI (urinary tract infection) N39.0 Enterocolitis K52.9 Acute kidney injury superimposed on CKD N17.9; N18.9
--- NOTE | 2024-09-26 12:38 | PC.NURSE ---
Pt eating burrito family brought in per LUIZA Chow, pt educated on diet order. Pt replies I can eat whatever I want .
[2024-09-27] VITALS (11 sets, daily range): BP systolic 91–109; BP diastolic 48–77; PULSE 72–105; RESP 15–20; TEMP 36.8–37.1; O2SAT 90–95
[2024-09-27] MEDS: oxyCODONE 5 mg IR Tab/Cap 2.5 MG PO ×3 (05:52→14:52)
[2024-09-27] MEDS: midodrine 5 mg TABLET 10 MG PO ×3 (05:52→17:03)
[2024-09-27] MEDS: cefTRIAXone 1,000 mg SDV 1000 MG IVP (05:52)
[2024-09-27] MEDS: hyDROXYzine 25 mg Capsule PO (05:56)
[2024-09-27 06:03] LABS: Basophils % 0.7 %; Eosinophils # 0.3 10^3/uL (0.0-0.8); Eosinophils % 5.1 %; Hematocrit 32.2 % (37-53); Lymphocytes # 1.3 10^3/uL (0.8-4.8); Lymphocytes % 22.1 %; Mean Corpuscular HGB Conc 34.5 g/dL (30-55); Mean Corpuscular Volume 95.8 fl (82-101); Mean Platelet Volume 10.7 fL (7.4-10.4); Monocytes # 0.7 10^3/uL (0.2-0.9); Monocytes % 12.6 %; Neutrophils # 3.43 10^3/uL (1.8-7.7); Neutrophils % 58.6 %; Nucleated Red Blood Cells % 0 %; Platelet Count 74 10^3/cmm (157-399); Red Blood Count 3.36 10^6/uL (3.85-5.65); Red Cell Distribution Width 15.2 % (12.1-15.1); White Blood Count 5.85 10^3/uL (3.29-11.43)
[2024-09-27 06:23] LABS: Alanine Aminotransferase 16 U/L (0-41); Albumin Level 2.6 g/dL (3.5-5.2); Alkaline Phosphatase 87 U/L (40-130); Anion Gap 14.5 (5-19); Aspartate Amino Transferase 37 U/L (0-40); Blood Urea Nitrogen 32 mg/dL (6-20); Calcium 8.2 mg/dL (8.5-10.5); Carbon Dioxide 24 mmol/L (22-29); Chloride 96 mmol/L (98-107); Creatinine Clr Calc Pharmacy 44.4812; Globulin 3.2 g/dL (1.3-4.6); Glomerular Filtration Rate 37.3 mL/min (90-130); Glucose 89 mg/dL (65-115); Magnesium 1.8 mg/dL (1.7-2.3); Osmolality Calculated 278 mOsm/kg (285-295); Phosphorus 2.7 mg/dL (2.5-4.5); Potassium 3.5 mmol/L (3.5-5.1); Sodium 131 mmol/L (136-145); Total Bilirubin 5.3 mg/dL (0.15-1.2); Total Protein 5.8 g/dL (6.6-8.7)
--- NOTE | 2024-09-27 07:22 | US_ITS ---
WS: [id number] INDICATION: Ascites TECHNIQUE: Ultrasound abdomen limited fluid FINDINGS: Four-quadrant ultrasound for ascites. Mild abdominal ascites visualized. Several loops of distended bowel are partially visualized. No other acute findings. US/US abdomen lmt fluid [id number] IMPRESSION: Mild abdominal ascites significantly improved since 09/19 and 5
[2024-09-27] MEDS: spironolactone 25 mg Tablet PO ×2 (07:54→17:03)
[2024-09-27] MEDS: FUROsemide 20 mg Tablet PO (07:54)
[2024-09-27] MEDS: pantoprazole DR 40 mg Tablet PO (07:54)
[2024-09-27] MEDS: lactulose oral liq 20 gm/30 mL UDC PO ×2 (10:34→15:52)
[2024-09-27] MEDS: ipratropium-albuterol 3 mL Neb INHALATION (10:43)
--- NOTE | 2024-09-27 13:29 | P.DS_ITS ---
Discharge Providers Date of Admission: 09/20/24 08:38 Date of Discharge: September 27, 2024 Attending Provider at Admission: Adan Altamirano Attending Provider at Discharge: Sasha Garces MD Primary Care Provider: ALENA More Diagnoses at Discharge Discharge Diagnosis (1) Decompensation of cirrhosis of liver: Status: Acute (2) SBP (spontaneous bacterial peritonitis): Status: Acute (3) UTI (urinary tract infection): Status: Acute (4) Enterocolitis: Status: Acute (5) Acute kidney injury superimposed on CKD: Status: Acute Reason for Visit Reason for Visit: V\ABD Pain Brief History: This is a patient with a history of liver cirrhosis, chronic kidney dysfunction, and emphysema presenting with diffuse abdominal pain accompanied by nausea, vomiting, and intermittent diarrhea. The patient reports feeling generally weak. In the emergency department, imaging revealed significant ascites (with approximately six liters of fluid removed) as well as bowel and bladder wall thickening, raising concerns for possible infection with spontaneous bacterial peritonitis. Incidentally noted on CT findings that may also suggest urinary tract infection and colitis with urinary bladder thickening as well as diffuse thickening of small and large bowel. The patient denies fever and chills but mentions dark urine. Additionally, decreased oral intake may be contributing to a worsening of his chronic kidney dysfunction. He also noted abstinence from alcohol for about four and a half months. Hospital Course Hospital Course (1) SBP (spontaneous bacterial peritonitis): Reviewed vitals, CBC, afebrile, with noted decrease in leukocytosis to 12.47. Reviewed peritoneal fluid culture, noted neutrophils, no bacteria on Gram stain so far. Follow-up culture results. Reviewed blood culture, so far negative. Continue empiric antibiotic coverage with ceftriaxone. Follow-up cultures, reassess blood counts. Reassess chemistry. (2) Decompensation of cirrhosis of liver: Reviewed INR, with further elevation up to 3. T. bili with some improvement to 2.8. Alk phos normal. AST and ALT normal. Platelets with some further worsening to 44. Hemoglobin down to 10.8. He is awake and alert. Status post paracentesis of about 6 L. Will reassess blood counts, chemistry, INR. With possible hepatorenal syndrome, received albumin, started on low rate Levophed. With some improvement in renal function today, BUN 26, creatinine down to 1.8. MELD score 32. As per discussion with him discussed also with hepatology/transplant specialist at [facility]. Not a candidate for TIPS at this time. At the moment not a candidate for transplantation, but needs further assessment, recommending obtaining TTE, requested. Will need also to set up with hepatology to follow-up with his outpatient. His insurance was checked and [facility] is not in his network, recommendation to patient and family to call insurance to find out which hospital system does perform transplant he is within his insura nce benefits and let us know. Please refer him to hepatology in the network once they are able to obtain this information. She will also need close follow- up with primary provider. Continue to optimize diuretic regimen, try to stable for ascites to allow for possibly weekly or longer paracentesis to allow discharge home. Discussed with nursing, housing case manager. (3) UTI (urinary tract infection): Continue empiric antibiotic treatment with ceftriaxone. Follow-up urine culture. So far without growth in urine. (4) Enterocolitis: Without diarrhea. Incidentally noted on CT, has had nausea and vomiting, although no diarrhea. Could be reactive due to ascites and SBP. In case of diarrhea we will collect samples. (5) Acute kidney injury superimposed on CKD: Reviewed BUN, creatinine, potassium, bicarb, anion gap, showing improvement in renal function. Monitor urine output. Yesterday states he urinated quite a bit. Denies difficulty urinating. Possible hepatorenal syndrome, blood pressure soft yesterday, started on Levophed, received albumin. Reassess renal function. Blood pressure showing gradual improvement. Weaning down to 2 mcg/min on Levophed. Continue to titrate depending on pressures. Monitor intake and output. Reassess renal parameters. On review of CT without obstructive uropathy. Question of possible renal mass in the past. Not visualized on CT, although luis dies noncontrast. Discussed with the patient and his family will see if we can request records from [facility] in [place] where he says he followed with regards to the possible kidney lesions. Plan Urinary bladder wall thickening: With hematuria, history of smoking, follow-up with urology after discharge. Emphysema: Incidentally noted on CT. Uses inhaler as needed at home Current kidney disease Liver cirrhosis: Is being referred for placement of transplant list. Last EtOH over 4.5 months ago. Reportedly had been following with hepatology in [place]. Does not seem to have had EGD in the past. Resume follow-up with surgery, hepatology after discharge. Consideration may be given to nonselective beta-sneha. 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 Was having persistent nausea/vomiting, not able to tolerate po. today he is doing well, denies any nausea. Plan was for paracentesis, but not enough fluid to drain. hence will discharge him today, to be followed up with PCP as outpatient.Completed 7 days of ceftriaxone, will discharge with po bactrim DS bid for 5 days. Physical Exam Narrative: General: Patient is awake. Ill-appearing. Laying in bed. Head: Normocephalic. Atraumatic. EOM intact. Neck: No JVD. Cardiovascular: RRR. No gallops. No murmurs. Lungs: Clear to auscultation, no use of accessory muscles, no crackles or wheezes. Skin: Diffuse jaundice. No rashes. Abdomen: Abdomen distended. Mildly tender to palpation. Bowel sounds present. Extremities: No cyanosis or clubbing. Musculoskeletal: No swollen or erythematous joints. Neurological: No myoclonus. Discharge Data Studies Completed and Pending Completed Studies During Hospitalization Category Date Time Status CT abdomen pelvis wo con [id number] Stat Cat Scan 09/19/24 22:40 Completed XR chest 1V portable [id number] Stat Exams 09/20/24 06:45 Completed Cytology [PTH] Routine Pth 09/20/24 09:45 Completed CV. echo complete* [id number] Routine Ultrasound 09/23/24 13:37 Com[place]acent[place] abd w [id number] Stat Ultrasound 09/20/24 05:52 Completed Pending at discharge Category Date Time Status Albumin Body Fluid Routine Lab 09/26/24 07:23 Ordered Anaerobic Culture Routine Lab 09/26/24 07:23 Ordered Body Fluid Analysis Routine Lab 09/26/24 07:23 Ordered Body Fluid Culture & GS Routine Lab 09/26/24 07:23 Ordered Cyto Order Verification Routine Lab 09/26/24 07:23 Ordered Glucose Body Fluid Routine Lab 09/26/24 07:23 Ordered Mycobacteria, Culture w/Fluor Routine Lab 09/26/24 07:23 Ordered Total Protein Body Fluid Routine Lab 09/26/24 07:23 Ordered pH Body Fluid Routine Lab 09/26/24 07:23 [place] [id number] Routine Ultrasound 09/27/24 07:22 Ordered Radiology Impressions Abdomen/Pelvis CT 09/19/24 22:40 IMPRESSION: 1. Cirrhotic liver morphology with sequela of portal hypertension including perisplenic varices and moderate to large abdominopelvic ascites. 2. Diffuse thickening of small and large bowel, may be reactive due to ascites, enteritis/colitis would be less likely. 3. Mural bladder wall thickening, likely representing reactive edema, if there is concern for cystitis correlation with urinalysis is recommended. 4. Stable aneurysmal dilatation of the abdominal aorta measuring up to 4.1 cm. 5. Emphysema. Paracentesis Ultrasound 09/20/24 05:52 IMPRESSION: Uncomplicated paracentesis yielding 6000 ml of peritoneal fluid. Chest X-Ray 09/20/24 06:45 IMPRESSION: 1. No acute finding. 2. Mild bilateral plaque atelectasis. Laboratory Results WBC 5.85 10^3/uL (3.29-11.43) 09/27/24 05:25 RBC 3.36 10^6/uL (3.85-5.65) L 09/27/24 05:25 Hgb 11.10 g/dL (11.27-16.99) L 09/27/24 05:25 Hct 32.2 % (37-53) L 09/27/24 05:25 MCV 95.8 fl (82-101) 09/27/24 05:25 MCH 33.0 pg (27-33) 09/27/24 05:25 MCHC 34.5 g/dL (30-55) 09/27/24 05:25 RDW 15.2 % (12.1-15.1) H 09/27/24 05:25 Plt Count 74 10^3/cmm (157-399) L 09/27/24 05:25 MPV 10.7 fL (7.4-10.4) H 09/27/24 05:25 Neut % (Auto) 58.6 % 09/27/24 05:25 Lymph % (Auto) 22.1 % 09/27/24 05:25 [place] % (Auto) 12.6 % 09/27/24 05:25 Eos % (Auto) 5.1 % 09/27/24 05:25 Baso % (Auto) 0.7 % 09/27/24 05:25 Neut # (Auto) 3.43 10^3/uL (1.8-7.7) 09/27/24 05:25 Lymph # (Auto) 1.3 10^3/uL (0.8-4.8) 09/27/24 05:25 [place] # (Auto) 0.7 10^3/uL (0.2-0.9) 09/27/24 05:25 Eos # (Auto) 0.3 10^3/uL (0.0-0.8) 09/27/24 05:25 Baso # (Auto) 0.0 10^3/uL (0.0-0.1) 09/27/24 05:25 Nucleated RBC % (auto) 0 % 09/27/24 05:25 Total Counted 100 (0-100) 09/19/24 20:38 Atypical Lymphs % Not Reportable 09/19/24 20:38 Absolute Neutrophils 10.7 10^3/cmm (1.4-6.5) H 09/19/24 20:38 Segmented Neutrophils 82 % 09/19/24 20:38 Band Neutrophils 14.0 % 09/19/24 20:38 Lymphocytes (Manual) 2 % 09/19/24 20:38 Monocytes (Manual) 0.0 % 09/19/24 20:38 Absolute Monocytes 0.0 10^3/cmm (0.1-0.6) L 09/19/24 20:38 Eosinophils (Manual) 0 % 09/19/24 20:38 Absolute Eosinophils 0.0 10^3/cmm (0.0-0.7) 09/19/24 20:38 Basophils (Manual) 0.0 % 09/19/24 20:38 Absolute Basophils 0.0 10^3/cmm (0.0-0.2) 09/19/24 20:38 Metamyelocytes 2.0 % 09/19/24 20:38 Nucleated RBCs # 0.0 /100WBC 09/27/24 05:25 Platelet Estimate Decreased (Normal) 09/19/24 20:38 PT 22.00 SECONDS (12.1-14.9) H 09/24/24 03:33 INR 1.80 (0.8-1.2) H 09/24/24 03:33 Sodium 131 mmol/L (136-145) L 09/27/24 05:25 Potassium 3.5 mmol/L (3.5-5.1) 09/27/24 05:25 Chloride 96 mmol/L (98-107) L 09/27/24 05:25 Carbon Dioxide 24 mmol/L (22-29) 09/27/24 05:25 Anion Gap 14.5 (5-19) 09/27/24 05:25 BUN 32 mg/dL (6-20) H 09/27/24 05:25 Creatinine 1.9 mg/dL (0.7-1.2) H 09/27/24 05:25 GFR Calculation 37.3 mL/min (90-130) L 09/27/24 05:25 Glucose 89 mg/dL (65-115) 09/27/24 05:25 Calculated Osmolality 278 mOsm/kg (285-295) L 09/27/24 05:25 Lactic Acid 5.7 mmol/L (0.5-2.2) H* 09/20/24 06:04 Lactic Acid (Sepsis) 6.5 mmol/L (0.5-2.2) H* 09/20/24 11:03 Calcium 8.2 mg/dL (8.5-10.5) L 09/27/24 05:25 Phosphorus 2.7 mg/dL (2.5-4.5) 09/27/24 05:25 Magnesium 1.8 mg/dL (1.7-2.3) 09/27/24 05:25 Total Bilirubin 5.3 mg/dL (0.15-1.2) H 09/27/24 05:25 AST 37 U/L (0-40) 09/27/24 05:25 ALT 16 U/L (0-41) 09/27/24 05:25 Alkaline Phosphatase 87 U/L (40-130) 09/27/24 05:25 Ammonia 65 umol/L (16-60) H 09/20/24 06:04 Total Protein 5.8 g/dL (6.6-8.7) L 09/27/24 05:25 Albumin 2.6 g/dL (3.5-5.2) L 09/27/24 05:25 Globulin 3.2 g/dL (1.3-4.6) 09/27/24 05:25 Lipase 19 U/L (13-60) 09/20/24 06:04 Urine Color Dark yellow (Yellow) A 09/20/24 06:37 Urine Appearance Slightly cloudy (CLEAR) 09/20/24 06:37 Urine pH 5 (5-7) 09/20/24 06:37 Ur Specific [place] 1.020 (1.005-1.030) 09/20/24 06:37 Urine Protein 1+ (Negative) A 09/20/24 06:37 Urine Glucose (UA) Norm (Normal) 09/20/24 06:37 Urine Ketones 1+ (Negative) H 09/20/24 06:37 Urine Blood 3+ (Negative) A 09/20/24 06:37 Urine Nitrate Negative (Negative) 09/20/24 06:37 Urine Bilirubin 1+ (Negative) H 09/20/24 06:37 Urine Urobilinogen 4 mg/dL (Negative) H 09/20/24 06:37 Ur Leukocyte Esterase Trace (Negative) A 09/20/24 06:37 Urine RBC >100 /hpf (0-2) H 09/20/24 06:37 Urine WBC 5-10 /hpf (0-5) H 09/20/24 06:37 Ur Squamous Epith Cells 0-5 /hpf (0-5) 09/20/24 06:37 Amorphous Sediment Not Reportable 09/20/24 06:37 Urine Bacteria None seen /hpf (NONE) 09/20/24 06:37 Hyaline Casts 45-50 /lpf 09/20/24 06:37 Peritoneal Color Yellow (Pale Yellow) 09/20/24 09:45 Peritoneal Appearance Turbid (Clear) 09/20/24 09:45 Peritoneal WBC 6398 /uL 09/20/24 09:45 Peritoneal RBC 3 10^3/uL 09/20/24 09:45 Periton Mononu # Auto 0.635 10^3/uL 09/20/24 09:45 Mononuclear WBCs % 10.000 % 09/20/24 09:45 Polynuclear WBCs % 90.000 % 09/20/24 09:45 Perit Polynuc WBCs # 5.763 10^3/uL 09/20/24 09:45 Peritoneal Diff Commnt Yes 09/20/24 09:45 Ethyl Alcohol < 10 mg/dL (0-10) 09/20/24 06:04 Vitals Last Vital Signs Temp 98.4 F 09/27/24 11:28 Pulse 105 H 09/27/24 11:28 Resp 16 09/27/24 11:28 BP 109/77 09/27/24 11:28 Pulse Ox 92 09/27/24 11:28 O2 Del Method Nasal Cannula 09/27/24 11:28 O2 Flow Rate 2 09/27/24 11:28 Discharge Plan Discharge Patient Disposition: Home Condition: Stable Prescriptions: New sulfamethoxazole-trimethoprim [Bactrim DS] 800-160 mg tablet 1 tab PO BID Qty: 10 0RF Continued furosemide 20 mg tablet 20 mg PO DAILY midodrine 10 mg tablet 5 mg PO TID Rx Instructions: do not give last dose of day after 6PM or within 4 hrs of bedtime allopurinol 300 mg tablet 300 mg PO DAILY alprazolam 0.25 mg tablet 0.25 mg PO .PRN ondansetron 4 mg Tablet,Disintegrating 4 mg PO Q6H PRN (Reason: Nausea And Vomiting) albuterol sulfate 90 mcg/actuation HFA aerosol inhaler 1 puff INHALATION Q4H PRN (Reason: Shortness Of Breath) Discharge Orders: Discharge Order (Routine); Ordered 09/27/24 Ordered By: Sasha Garces Referrals: Larissa Fuller FNP [Primary Care Provider] - 10/05/24 2:10 pm Discharge Diet: Low Salt Discharge Activity: Increase activity as tolerated Patient Instructions: Opioid Safety Discharge Attestations Time Spent in Discharge Care*: less than 30 min Quality Metrics Clinical Quality Measures [ No reported AMI, CVA or VTE this stay] Coding Level of Care Code Acute Code for Chg Fwd Diagnoses Decompensation of cirrhosis of liver K72.90; K74.60 SBP (spontaneous bacterial peritonitis) K65.2 UTI (urinary tract infection) N39.0 Enterocolitis K52.9 Acute kidney injury superimposed on CKD N17.9; N18.9 Time Spent (min) 20
[2024-09-27] MEDS: ondansetron 2 mg/ML SDV 2 mL 4 MG IVP (17:10)
== END 2024-09-27 19:00 | disposition home or self-care (01) | DRG 441 ==
LOC: ER 09-20 05:59 → ICU 09-20 08:38 → MEDSURG 09-21 17:20
PROVIDERS: Emergency Medicine; Internal Medicine; Admitting Provider Internal Medicine; Emergency Provider Family Medicine; PCP Nurse Practitioner; Visit Provider Internal Medicine
DX: K72.90 Hepatic failure, unspecified without coma (principal); K65.2 Spontaneous bacterial peritonitis; K76.7 Hepatorenal syndrome; R18.8 Other ascites; N39.0 Urinary tract infection, site not specified; N17.9 Acute kidney failure, unspecified; K52.9 Noninfective gastroenteritis and colitis, unspecified; N18.9 Chronic kidney disease, unspecified; J43.9 Emphysema, unspecified; Z87.891 Personal history of nicotine dependence
CPT/HCPCS: 36415; 49083; 71045; 74176; 76705; 80053; 80307; 80503; 81001; 82140; 83605; 83690; 83735; 84100; 85007; 85025; 85610; 87040; 87070; 87075; 87086; 87205; 88112; 88305; 89050; 93306; 94640; 96365; 96372; 96375; 96376; 97161; 99285; J0696; J0780; J1171; J1650; J2270; J2405; J3475; J3480; J7030; J9999; P9046